=== PATIENT | female | born 1995 | race Caucasian/White ===

== ENCOUNTER 2023-09-21 06:36 | Observation (INO) | payer OTHER, SELFPAY ==
--- NOTE | ~2023-09-21 | MR_ITS ---
EXAMINATION: MR BRAIN WITHOUT CONTRAST CLINICAL INFORMATION: Intractable vertigo. COMPARISON: CT head 09/21/2023. TECHNIQUE: MRI of the brain was obtained using routine sequences without contrast. FINDINGS: There are a few scattered nonspecific foci of T2 FLAIR signal hyperintensity within the supratentorial white matter. No infratentorial white matter disease. No acute territorial infarct. No pathological magnetic susceptibility artifact. Intracranial vascular flow voids are grossly maintained. There is no intracranial mass effect or midline shift. Lateral and third ventricles are normal. No hydrocephalus. Midline structures including the cervicomedullary junction are normal. No acute bone marrow signal changes. There is no mastoid or middle ear effusion. Trivial mucosal thickening within ethmoid air cells. Globes and orbits are symmetric. MR/MR head/brain wo con IMPRESSION: There are a few scattered nonspecific signal changes within the supratentorial white matter. Otherwise unremarkable examination. No infratentorial white matter disease. No evidence of acute territorial infarct or hemorrhage.
--- NOTE | ~2023-09-21 | CT_ITS ---
EXAMINATION: CT HEAD WITHOUT CONTRAST CLINICAL INFORMATION: Dizziness COMPARISON: None available. TECHNIQUE: Contiguous axial imaging was performed from the skull base to vertex without intravenous administration of contrast. This CT examination was performed using dose optimization techniques as appropriate, variously including the following: *Automated exposure control *Adjustment of mA and/or kV according to patient size (this includes techniques or standardized protocols for targeted exams where dose is matched to indication/reason for exam; i.e. extremities or head) *Use of iterative reconstruction technique DLP: 572 mGy-cm FINDINGS: There is no evidence of acute intracranial hemorrhage or territorial infarction. No abnormal mass effect or midline shift is seen. Bowers to white matter differentiation is well preserved. No extra-axial fluid collections are identified. The ventricles are normal in size. There is no abnormal attenuation within the brain parenchyma. The osseous structures and soft tissues are normal. The mastoid air cells and visualized portions of the paranasal sinuses are well aerated. CT/CT head/brain wo IV con IMPRESSION: No acute intracranial pathology.
[2023-09-21 06:46] VITALS: BP 139/95; PULSE 89; RESP 16; TEMP 37.1; O2SAT 98; BMI 23.3
[2023-09-21 07:02] LABS: MANUAL DIFF FLAG NO
[2023-09-21 07:06] LABS: Basophils Percent Auto 0.4 % (0-2); Eosinophils Absolute Auto 0.1 X10*3/uL (0.0-0.4); Eosinophils Percent Auto 1.1 % (0-4); Hematocrit 42.4 % (37.0-47.0); Hemoglobin 14.4 g/dl (12.0-16.0); Imm Gran Abs Auto 0.03 X10*3/uL (0.00-0.03); Imm Gran Pct Auto 0.4 % (0.0-0.4); Lymphocytes Percent Auto 28.8 % (20-40); Mean Corpuscular Hemoglobin 30.7 pg (27.0-33.0); Mean Corpuscular Volume 90.4 fL (80.0-98.0); Mean Platelet Volume 11.2 fL (9.4-12.3); Monocytes Absolute Auto 0.6 X10*3/uL (0.1-1.2); Monocytes Percent Auto 8.3 % (2-11); Neutrophils Absolute Auto 4.3 x10*3/uL (2.0-8.3); Platelet Count 162 X10*3/uL (160-400); Red Blood Count 4.69 X10*6/uL (4.20-5.50); Red Cell Distribution Width 11.5 % (11.0-16.0); White Blood Count 7.1 X10*3/uL (4.8-10.8)
[2023-09-21 07:21] LABS: Alanine Aminotransferase 21 U/L (0-31); Albumin Level 4.3 g/dL (3.5-5.0); Alkaline Phosphatase 76 U/L (39-117); Anion Gap 12 (12-20); Aspartate Amino Transferase 19 U/L (5-31); Bilirubin Direct 0.1 mg/dL (0.0-0.5); Bilirubin Total 0.3 mg/dL (0.0-1.0); Blood Urea Nitrogen 11 mg/dL (9-16); Calcium 9.9 mg/dL (8.4-10.2); Carbon Dioxide 22 mmol/L (22-29); Chloride 108 mmol/L (96-108); Creatinine Clr Calc Pharmacy 102.3; Estimated Glomerular Filt Rate > 60; Glucose Random 120 mg/dL (60-115); Lipase 25 U/L (8-78); Potassium 3.7 mmol/L (3.3-5.1); Sodium 138 mmol/L (135-145); Total Protein 7.1 g/dL (6.5-8.0)
--- NOTE | 2023-09-21 08:09 | ED_ITS ---
HPI - General Adult General Chief complaint: Nausea/Vomiting/Diarrhea Stated complaint: Vomiting Time Seen by Provider: 09/21/23 07:59 Source: patient and family (Sister) Mode of arrival: ambulatory Limitations: no limitations History of Present Illness ED Provider: DR. Goodman HPI narrative: 27-year-old female presented after woke up this morning with head pain feels like pins and needle in the entire head associated with severe dizziness and vomiting. Patient declined any weakness or numbness. no family history of strokes, brain bleed, or brain cancer. Patient drinks alcohol occasionally nothing recently, but patient use edible marijuana almost on a daily basis. Patient's symptoms is constant since 05:00 when she woke up, during the exam patient is bending down to keep her head down which is the only position relief patient's symptoms. Patient had similar symptoms in the past but in a mild form not as severe as today. No abdominal pain, no diarrhea. Related Data Home Medications ?Medication ?Instructions ?Recorded ?Confirmed cholecalciferol (vitamin D3) 10 10 mcg PO DAILY 08/06/22 08/06/22 mcg (400 unit) tablet (Vitamin D3) lisdexamfetamine 70 mg capsule 70 mg PO QAM 08/06/22 08/06/22 (Vyvanse) sulindac 150 mg tablet 150 mg PO BID PRN pain 08/06/22 08/06/22 Previous Rx's ?Medication ?Instructions ?Recorded benzoyl peroxide 10 % topical 1 appl topical DAILY #142 grams 08/06/22 cleanser spironolactone 50 mg tablet 50 mg PO BID #60 tabs 08/10/22 Allergies Allergy/AdvReac Type Severity Reaction Status Date / Time clindamycin Allergy Intermediate Chest Pain Verified 09/21/23 06:48 Review of Systems 2 Review of Systems: All other systems are reviewed and are negative Constitutional: Reports as per HPI and Reports no additional constitutional complaints Eyes: Reports as per HPI and Reports no additional eye complaints Reports system reviewed and no additional complaints, except as documented Cardiovascular: Reports as per HPI and Reports no additional cardiovascular complaints Respiratory: Reports as per HPI and Reports no additional respiratory complaints Gastrointestinal: Reports as per HPI and Reports no additional gastrointestinal complaints Genitourinary: Reports no additional female genitourinary complaints Musculoskeletal: Reports no additional musculoskeletal complaints Skin/Breast: Reports system reviewed and no additional complaints, except as docu Psychiatric: Reports no additional psychiatric complaints Endocrine: Reports no additional endocrine complaints Hematologic/Lymphatic: Reports no additional hematologic/lymphatic complaints Allergic/Immunologic: Reports no additional allergic/immunologic complaints Reports system reviewed and no additional complaints, except as documented and Reports Abnormal speech present [facility] Social History Social History Patient Tobacco Use Status: Current everyday Tobacco user Advance Directives: No Advance Directives Information Provided: Yes Do you have a plan to hurt others: No Plan Patient : No Physical Exam ED Vital Signs: Vital Signs - 24 hr 09/21/23 06:46 09/21/23 11:00 Temperature 98.8 F 98 F Pulse Rate 89 77 Respiratory Rate 16 16 Blood Pressure 139/95 H 101/55 L Pulse Oximetry 98 100 Oxygen Delivery Method Room Air Room Air BMI result Body Mass Index 23.3 Vital signs have been reviewed and appear to be correct. Blood pressure elevated. Heart rate normal. Respiratory rate normal. Temperature normal. Oxygen saturation normal. Appearance: Alert. Oriented X3. No acute distress. Head: Normal external exam. Normocephalic. Atraumatic. No Crystal signs noted. No raccoon eyes noted Eyes: PERRLA. EOMI. Conjunctiva and sclera normal. Eyelids normal. ENT: TM's Normal. Pharynx normal. Uvula midline. Moist mucous membranes. No trismus noted. No drooling noted. No muffled voice noted. Neck: Normal inspection. Neck supple. FROM. No adenopathy. Thyroid Normal. No meningeal signs. No neck mass noted. CVS: Normal heart rate and rhythm. Heart sound normal. No murmurs noted. Pulses normal throughout. Respiratory: No respiratory distress. Painless inspiration. Breath sounds normal. No wheezes/rales/rhonchi noted. Chest nontender. No accessory muscle usage noted or decreased air movement noted. Abdomen: Soft and nontender. Bowel sounds normal in all 4 quadrants. No distention noted. No organomegaly noted. No visible injury noted. Back: No CVA tenderness. Full range of motion noted. Skin: Skin warm and dry. Normal skin color. Normal skin turgor. No rashes/lesions/lacerations noted. Extremities: No lower extremity edema. Extremities exhibit normal range of motion. Extremities nontender. Neuro: Oriented X 3. Cranial nerve exam: II-XII are grossly intact No motor deficit. No sensory deficit. Reflexes normal. Normal cerebellar exam no [id number] dysmetria, can not perform toe to heel. Course Reevaluation(s) Reevaluation #1: Patient feels better, no nausea, no vomiting, repeat neuro exam is unremarkable for neurological deficit, able to ambulate in the emergency department steadily. Unremarkable labs, head CT is unremarkable. Patient's symptoms could be related to undiagnosed migraine or vertigo patient will be referred to outpatient neurologist. Meclizine p.r.n.. Time: 10:35 Reevaluation #2: 27-year-old female came in with dizziness and headache/migraine. Patient was given IV fluids, and multiple doses of Zofran, and meclizine with no improvement, unremarkable neuro exam, head CT is unremarkable since patient has unsteady gait will consider admitting until safe to be discharged. Time: 14:16 Medications Administered Discontinued Medications Generic Name Dose Route Start Last Admin Trade Name Freq PRN Reason Stop Dose Admin Sodium Chloride 1,000 mls @ 999 mls/hr 09/21/23 08:07 09/21/23 10:58 Ns IV 09/21/23 09:07 Infused .Q1H1M ONE Infusion Lorazepam 1 mg 09/21/23 08:07 09/21/23 08:47 Lorazepam 2 Mg/Ml Vial IVPUSH 09/21/23 08:08 1 mg ONCE ONE Administration Lorazepam 1 mg 09/21/23 10:42 09/21/23 11:01 Lorazepam 2 Mg/Ml Vial IVPUSH 09/21/23 10:43 1 mg STAT STA Administration Meclizine HCl 25 mg 09/21/23 08:07 09/21/23 08:48 Meclizine Hcl 25 Mg Tablet PO 09/21/23 08:08 25 mg ONCE ONE Administration Meclizine HCl 25 mg 09/21/23 10:42 09/21/23 11:02 Meclizine Hcl 25 Mg Tablet PO 09/21/23 10:43 25 mg ONCE ONE Administration Ondansetron HCl 4 mg 09/21/23 08:07 09/21/23 08:47 Ondansetron Hcl 4 Mg/2 Ml Vial IVPUSH 09/21/23 08:08 4 mg ONCE ONE Administration Medical Decision Making Differential Diagnosis Differential Diagnoses: The differential diagnosis associated with the presentation includes (Intracranial bleed, CVA, peripheral vertigo, dehydration, electrolyte derangement, severe anemia, .) Admission/Observation Consideration of admission/observation: Escalation of care including admission/observation considered Consult Healthcare Provider Management of the patient was discussed with: Hospitalist (Dr. Palacios) Lab Data MDM Lab Attestation statement: I reviewed the patient's lab results. 09/21/23 06:57 09/21/23 06:57 Labs: Lab Results 09/21/23 Range/Units 06:57 WBC 7.1 (4.8-10.8) X10*3/uL RBC 4.69 (4.20-5.50) X10*6/uL Hgb 14.4 (12.0-16.0) g/dl Hct 42.4 (37.0-47.0) % MCV 90.4 (80.0-98.0) fL MCH 30.7 (27.0-33.0) pg MCHC 34.0 (31.0-35.0) g/dl RDW 11.5 (11.0-16.0) % Plt Count 162 (160-400) X10*3/uL MPV 11.2 (9.4-12.3) fL Immature Gran % (Auto) 0.4 (0.0-0.4) % Neut % (Auto) 61.0 (45-73) % Lymph % (Auto) 28.8 (20-40) % [place] % (Auto) 8.3 (2-11) % Eos % (Auto) 1.1 (0-4) % Baso % (Auto) 0.4 (0-2) % Lymph # (Auto) 2.0 (1.2-4.9) X10*3/uL [place] # (Auto) 0.6 (0.1-1.2) X10*3/uL Eos # (Auto) 0.1 (0.0-0.4) X10*3/uL Baso # (Auto) 0.0 (0.0-0.2) X10*3/uL Abs Immat Gran (auto) 0.03 (0.00-0.03) X10*3/uL Absolute Neuts (auto) 4.3 (2.0-8.3) x10*3/uL Absolute Nucleated RBC 0.000 (0.0-0.012) X10*3/uL Nucleated RBC % (auto) 0.0 (0.0-0.2) /100WBC Sodium 138 (135-145) mmol/L Potassium 3.7 (3.3-5.1) mmol/L Chloride 108 (96-108) mmol/L Carbon Dioxide 22 (22-29) mmol/L Anion Gap 12 (12-20) BUN 11 (9-16) mg/dL Creatinine 0.73 (0.5-1.4) mg/dL Estim Creat Clear Calc 102.3 Estimated GFR > 60 Random Glucose 120 H (60-115) mg/dL Calcium 9.9 (8.4-10.2) mg/dL Total Bilirubin 0.3 (0.0-1.0) mg/dL Direct Bilirubin 0.1 (0.0-0.5) mg/dL AST 19 (5-31) U/L ALT 21 (0-31) U/L Alkaline Phosphatase 76 (39-117) U/L Total Protein 7.1 (6.5-8.0) g/dL Albumin 4.3 (3.5-5.0) g/dL Lipase 25 (8-78) U/L Beta HCG, Quant < 2 mIU/mL Independent Interpretation I performed an independent interpretation of an: CT Scan (Head: No acute intracranial pathology.) Radiology Impression Discussion of test interpretation with radiology: I have reviewed the radiologist's reading. Discharge Plan Discharge Clinical Impression: Vertigo, Headache Patient Disposition: Admitted As Inpatient Print Language: Italian
[2023-09-21] MEDS: LORazepam 2 MG/ML VIAL 1 MG IVPUSH ×2 (08:47→11:01)
[2023-09-21] MEDS: ondansetron HCL 4 MG/2 ML VIAL IVPUSH ×2 (08:47→18:43)
[2023-09-21] MEDS: Meclizine HCl 25 MG TABLET PO ×2 (08:48→11:02)
[2023-09-21] MEDS: 0.9 % Sodium Chloride 1,000 ML 999 ML IV (08:48)
[2023-09-21 09:25] LABS: HCG Quantitative < 2 mIU/mL
--- NOTE | 2023-09-21 10:44 | PC.NURSE ---
attempted to ambulate pt, very dizzy with 2x assist
[2023-09-21 11:00] VITALS: BP 101/55; PULSE 77; RESP 16; TEMP 36.6; O2SAT 100
--- NOTE | 2023-09-21 14:24 | PM.IMHP ---
History of Present Illness Date of Service: 09/21/23 Attending physician on admission: Peewee Nguyễn Chief Complaint: vertigo, n/v 27 year old female with history of cystic acne presented to the ED for evaluation of intractable vertigo with associated bilateral frontal headache, nausea, vomiting, gait imbalance that started around 5am. She states this was constant but now only happens with position changes, ambulating, and with head movements. Does have nausea and has vomited multiple times. She feels unsteady on her feet. She states she did take 1/2 THC gummy last night that was purchased from dispensary but has used full gummies in the past without this effect. No other substance use including alcohol, illicit drugs, cigarettes. Denies confusion, slurred speech, facial droop, unilateral weakness, paresthesias, diplopia, vision loss, syncope, sob, chest pain, or recent illness. No vision loss. No changes in hearing or tinnitus. No known tick bites. Has had similar symptoms in the past but never this severe, last recalled episode may 2022. Since arrival, VSS. Hematology studies unremarkable. Renal function normal, electrolyte levels normal. Serum test negative. Denies any new medications. She does have Nexplanon in place. Head CT negative for any acute intracranial abnormality. UA pending. In the ED, has received a total of 50 mg meclizine, 2 mg lorazepam, ondansetron and 1 L IV NS. Despite therapies, remains significantly symptomatic. Review of Systems Review of Systems: Yes all other systems are reviewed and are negative [facility] Medical History ADD (attention deficit disorder) Cystic acne Social History Patient Tobacco Use Status: Current everyday Tobacco user Advance Directives: No Advance Directives Information Provided: Yes Do you have a plan to hurt others: No Plan Patient : No Meds Allergies Allergy/AdvReac Type Severity Reaction Status Date / Time clindamycin Allergy Intermediate Chest Pain Verified 09/21/23 06:48 Active Medications: Current Medications Acetaminophen (Acetaminophen 325 Mg Tablet) 650 mg PO Q6H PRN PRN Reason: Pain, Mild (Pain Scale 1-3), fever or headache Calcium Carbonate (Calcium Carbonate 750 Mg Tab.Chew) 750 mg PO Q4H PRN PRN Reason: Heartburn Magnesium Hydroxide (Milk Of Magnesia 30 Ml Oral.Susp) 30 ml PO DAILY PRN PRN Reason: Constipation Melatonin (Melatonin 3 Mg Tablet) 6 mg PO BEDTIME PRN PRN Reason: Insomnia Ondansetron HCl (Ondansetron Hcl 4 Mg/2 Ml Vial) 4 mg IVPUSH Q8H PRN PRN Reason: Nausea and Vomiting Sodium Chloride (0.9 % Sodium Chloride Flush 3 Ml Syringe) 3 ml IVFLUSH QSHIFT OPAL Sumatriptan Succinate (Sumatriptan Succinate 6 Mg/0.5 Ml Vial) 6 mg SUBCUT ONCE ONE Stop: 09/21/23 14:22 Home Medications ?Medication ?Instructions ?Recorded ?Confirmed ?Last Taken ?Type cholecalciferol (vitamin D3) 10 10 mcg PO DAILY 08/06/22 08/06/22 Unknown History mcg (400 unit) tablet (Vitamin D3) lisdexamfetamine 70 mg capsule 70 mg PO QAM 08/06/22 08/06/22 Unknown History (Erin) sulindac 150 mg tablet 150 mg PO BID PRN pain 08/06/22 08/06/22 Unknown History Physical Exam Vital Signs and Narrative: Vital Signs: Last Vital Signs Temp 98 F 09/21/23 11:00 Pulse 77 09/21/23 11:00 Resp 16 09/21/23 11:00 BP 101/55 L 09/21/23 11:00 Pulse Ox 100 09/21/23 11:00 O2 Del Method Room Air 09/21/23 11:00 BMI result Body Mass Index 23.3 Constitutional - Awake and Alert, No apparent distress Eyes - PERRLA, EOMI Cardiovascular - S1S2, RRR, No edema Respiratory - Normal lung expansion, Normal respiratory effort, No respiratory distress, CTA bilaterally Gastrointestinal - NT / ND; +BS; No rebound or guarding Extremities - no calf tenderness bilaterally, no swelling Skin - Warm/Dry Neurological - Alert & oriented x3, bilateral horizontal nystagmus otherwise CN II-XII in tact, 5/5 strength BUE and BLE, negative romberg, gait imbalance Psychological - Appropriate affect Results Labs 09/21/23 06:57 09/21/23 06:57 Labs: Laboratory Results - last 24 hr 09/21/23 06:57 MCV 90.4 MCH 30.7 MCHC 34.0 RDW 11.5 Plt Count 162 MPV 11.2 Immature Gran % (Auto) 0.4 Neut % (Auto) 61.0 Lymph % (Auto) 28.8 [place] % (Auto) 8.3 Eos % (Auto) 1.1 Baso % (Auto) 0.4 Lymph # (Auto) 2.0 [place] # (Auto) 0.6 Eos # (Auto) 0.1 Baso # (Auto) 0.0 Abs Immat Gran (auto) 0.03 Absolute Neuts (auto) 4.3 Absolute Nucleated RBC 0.000 Nucleated RBC % (auto) 0.0 Anion Gap 12 Estim Creat Clear Calc 102.3 Estimated GFR > 60 Random Glucose 120 H Calcium 9.9 Total Bilirubin 0.3 Direct Bilirubin 0.1 AST 19 ALT 21 Alkaline Phosphatase 76 Total Protein 7.1 Albumin 4.3 Lipase 25 Beta HCG, Quant < 2 Imaging Radiologist's Impressions: Impressions Head CT 09/21/23 09:52 IMPRESSION: No acute intracranial pathology. Assessment and Plan (1) Headache: Status: Acute (2) Vertigo: Status: Acute Plan 27 year old female with history of cystic acne to be observed for intractable vertigo #Intractable peripheral vertigo with bileteral frontal headache -headache more consistent with tension headache but question possible vestibular migraine. Trial IM sumatriptan 6mg x1 -no hearing changes, vision changes. Doubt menieres, labrynithitis -Does use nexplanon, but no focal neuro deficits except nystagmus to suggest CVA. Check MRI brain -Given meclizine 50mg x2, lorazepam. Continue meclizine prn -antiemetics prn. Famotidine 20mg IV BID -clear liquids given ongoing nausea/vomiting. Continue OVF -neuro consult DVT prophylaxis- scps, early ambulation full code Quality Stroke Does the patient have a stroke diagnosis?: No VTE Prior VTE?: No VTE Risk Level:: Medical - moderate - high VTE Device Contraindication: N/A - Device Ordered VTE Drug Contraindication: Treatment Not Indicated
[2023-09-21] MEDS: 0.9 % Sodium Chloride 1,000 ML 100 ML IVCONT (15:07)
--- NOTE | 2023-09-21 15:30 | PHA.MEDREC ---
Addendum entered by Mildred Coy 09/21/23 15:44: Per patient, she opened her Vyvanse capsule and only took 1/4 of the contents. Original Note: Pharmacy Consult ? Medication Reconciliation Pharmacy has completed the medication reconciliation. spoke with patient to confirm medications. She takes OTC supplements, she thinks her vitamin d is 5000 units. States she tries to take the highest doses she can find OTC. She reports she has been too nervous to start the Vyvanse and only took 1/4 of a pill on Saturday. Patient states she did not take anything today or yesterday.
[2023-09-21] MEDS: Famotidine/PF 20 MG/2 ML VIAL IVPUSH ×2 (15:31→21:36)
[2023-09-21] MEDS: SUMAtriptan succinate 6 MG/0.5 ML VIAL SUBCUT (15:31)
--- NOTE | 2023-09-21 15:56 | PC.NURSE ---
pt off unit to MRI
--- NOTE | 2023-09-21 17:22 | PC.NURSE ---
pt unable to complete orthostatic vitals at this time, pt lethargic and dizzy.
[2023-09-21 17:29] VITALS: BP 102/62; PULSE 61; RESP 14; TEMP 36.8; O2SAT 99
[2023-09-21 17:53] VITALS: BP 103/59; PULSE 53; RESP 16; TEMP 36.8; O2SAT 98
[2023-09-21 18:22] LABS: Appearance Urine Clear; Color Urine Yellow; Glucose Urine UA Negative (Negative); Leukocyte Esterase Urine Negative (Negative); Nitrite Urine Negative (Negative); PH 7.5 (5.0-9.0); UMIC TRIGGER UACC YES; Urine Blood Moderate (2+) (Negative); Urine Ketones Negative (Negative); Urine Protein Negative (Neg-Trace)
[2023-09-21 18:23] LABS: UPreg QC Valid YES; Urine Pregnancy NEGATIVE (NEGATIVE)
[2023-09-21 18:36] LABS: Bacteria Urine None Seen (None Seen); Hyaline Casts Urine 0-2 /LPF (0-2); RBC Urine 0-2 /HPF (0-2); Squamous Epithelial Cell Urine 0-2 /HPF (0-2); WBC Urine 0-5 /HPF (0-5)
[2023-09-21] MEDS: Doxycycline Hyclate 100 MG in 0.9 % Sodium Chloride 250 ML 166.67 MG IV (18:43)
--- NOTE | 2023-09-21 19:36 | PC.NURSE ---
This RN assumed pt care @ 1900. Pt resting in bed, no signs of acute distress. Family @ bedside. Pt denies pain at this time Plan of care ongoing.
--- NOTE | 2023-09-21 19:42 | PC.NURSE ---
Solumedrol given late d/t abx running and per cammy at pharm med being brought down now. Plan of care ongoing.
[2023-09-21 19:46] VITALS: BP 110/70; PULSE 66; RESP 13; TEMP 36.3; O2SAT 99
--- NOTE | 2023-09-21 19:49 | PC.NURSE ---
Deb warren'd from pharm. Plan of care ongoing.
[2023-09-21] MEDS: methylPREDNISolone Sod Succ 1,000 MG in 0.9 % Sodium Chloride 50 ML 66 MG IV (20:37)
--- NOTE | 2023-09-21 21:38 | PC.NURSE ---
Pt medicated per may. Plan of care ongoing.
[2023-09-22 00:16] VITALS: BP 94/63; PULSE 69; RESP 16; TEMP 36.7; O2SAT 97
[2023-09-22 01:04] VITALS: BP 110/63; PULSE 70; RESP 18; TEMP 36.2; O2SAT 97
--- NOTE | 2023-09-22 01:22 | MHC.EDTECH ---
When going over belongings with Pt, she stated shed had her wallet and keys with her so this was noted in belongings sheet. After t/w completed and printed this, Pt stated her mother took these items home. This was marked on the belongings sheet, and changed in the system.
[2023-09-22] MEDS: 0.9 % Sodium Chloride 1,000 ML 100 ML IVCONT ×3 (01:26→21:24)
[2023-09-22] MEDS: Doxycycline Hyclate 100 MG in 0.9 % Sodium Chloride 250 ML 166.67 MG IV ×2 (05:55→16:56)
[2023-09-22] MEDS: ondansetron HCL 4 MG/2 ML VIAL IVPUSH (06:03)
[2023-09-22 06:59] VITALS: BP 100/61; PULSE 60; RESP 16; TEMP 36; O2SAT 97
[2023-09-22] MEDS: Ferrous Sulfate 324 MG TABLET.DR PO (08:45)
[2023-09-22] MEDS: Calcium Oyster Shell Elemental 500 MG TABLET PO (08:46)
[2023-09-22] MEDS: Cyanocobalamin (Vitamin B-12) 1,000 MCG TABLET 1000 MCG PO (08:48)
[2023-09-22] MEDS: Cholecalciferol (Vitamin D3) 25 MCG TABLET 125 MCG PO (08:48)
[2023-09-22] MEDS: methylPREDNISolone Sod Succ 1,000 MG in 0.9 % Sodium Chloride 50 ML 66 MG IV (08:49)
[2023-09-22] MEDS: Famotidine/PF 20 MG/2 ML VIAL IVPUSH ×2 (08:49→21:18)
--- NOTE | 2023-09-22 09:43 | P.PNIM_ITS ---
Subjective Subjective Date of Service: 09/22/23 Interval History: vertigo somewhat better Physical Exam 2 Vital Signs: Vital Signs: Last Vital Signs Temp 96.8 F 09/22/23 06:59 Pulse 60 09/22/23 06:59 Resp 16 09/22/23 06:59 BP 100/61 09/22/23 06:59 Pulse Ox 97 09/22/23 06:59 O2 Del Method Room Air 09/22/23 06:59 BMI result Body Mass Index 23.3 General: AO X 3, no acute distress Resp: CTA bilateral, no accessory muscles used CVS: S1,S2,RRR GI: soft, non tender, non distended Neuro: motor grossly intact, alert Psych: appropriate affect, appropriate insight Objective Data Active Medications Acetaminophen (Acetaminophen 325 Mg Tablet) 650 mg PO Q6H PRN PRN Reason: Pain, Mild (Pain Scale 1-3), fever or headache Albuterol Sulfate (Albuterol Sulfate 90 Mcg 8 Gm Inhaler) 2 puff INHALE Q4H PRN PRN Reason: Shortness Of Breath Or Wheezin Calcium Carbonate (Calcium Carbonate 750 Mg Tab.Chew) 750 mg PO Q4H PRN PRN Reason: Heartburn Calcium Carbonate (Calcium Oyster Shell Elemental 500 Mg Tablet) 500 mg PO DAILY [facility] Last Admin: 09/22/23 08:46 Dose: 500 mg Documented By: MEKHI Cyanocobalamin (Cyanocobalamin (Vitamin B-12) 1,000 Mcg Tablet) 1,000 mcg PO DAILY [facility] Last Admin: 09/22/23 08:48 Dose: 1,000 mcg Documented By: MEKHI Famotidine (Famotidine/Pf 20 Mg/2 Ml Vial) 20 mg IVPUSH BID [facility] Last Admin: 09/22/23 08:49 Dose: 20 mg Documented By: MEKHI Ferrous Sulfate (Ferrous Sulfate 324 Mg Tablet.Dr) 324 mg PO DAILY [facility] Last Admin: 09/22/23 08:45 Dose: 324 mg Documented By: MEKHI Sodium Chloride (Ns) 1,000 mls @ 100 mls/hr IVCONT .Q10H [facility] Last Admin: 09/22/23 01:26 Dose: 100 mls/hr Documented By: JEFFRY Doxycycline Hyclate 100 mg/ (Sodium Chloride) 250 mls @ 166.67 mls/hr IV Q12H [facility] Last Infusion: 09/22/23 07:38 Dose: Infused Documented By: MEKHI Methylprednisolone Sodium Succinate 1,000 mg/ Sodium Chloride 66 mls @ 66 mls/hr IV DAILY [facility] Last Admin: 09/22/23 08:49 Dose: 66 mls/hr Documented By: MEKHI Magnesium Hydroxide (Milk Of Magnesia 30 Ml Oral.Susp) 30 ml PO DAILY PRN PRN Reason: Constipation Meclizine HCl (Meclizine Hcl 25 Mg Tablet) 25 mg PO Q8H PRN PRN Reason: Vertigo Melatonin (Melatonin 3 Mg Tablet) 6 mg PO BEDTIME PRN PRN Reason: Insomnia Ondansetron HCl (Ondansetron Hcl 4 Mg/2 Ml Vial) 4 mg IVPUSH Q8H PRN PRN Reason: Nausea and Vomiting Last Admin: 09/22/23 06:03 Dose: 4 mg Documented By: JEFFRY Sodium Chloride (0.9 % Sodium Chloride Flush 3 Ml Syringe) 3 ml IVFLUSH QSHIFT [facility] Last Admin: 09/22/23 07:38 Dose: Not Given Documented By: MEKHI Non-Admin Reason: IV Running Vitamin D (Cholecalciferol (Vitamin D3) 25 Mcg Tablet) 125 mcg PO DAILY [facility] Last Admin: 09/22/23 08:48 Dose: 125 mcg Documented By: MEKHI Labs 09/21/23 06:57 09/21/23 06:57 Labs: Laboratory Results - last 24 hr 09/21/23 18:14 Urine Color Yellow Urine Appearance Clear Urine pH 7.5 Ur Specific [place] 1.010 Urine Protein Negative Urine Glucose (UA) Negative Urine Ketones Negative Urine Blood Moderate (2+) H Urine Nitrite Negative Ur Leukocyte Esterase Negative Urine RBC 0-2 Urine WBC 0-5 Ur Squamous Epith Cells 0-2 Urine Bacteria None Seen Hyaline Casts 0-2 Urine Test NEGATIVE Assessment and Plan (1) Vertigo: Status: Acute Plan 27F presented with intractable vertigo intractable vertigo d/w neuro differential includes complicated migraine, less likely MS or lyme continue empiric high dose steroids day 2/3, and empiric doxy until lyme results returned will cancel LP, plan for repeat mri in 6 months full code reason for continued hospitalization: high dose steroids Quality Stroke Does the patient have a stroke diagnosis?: No VTE Prior VTE?: No VTE Risk Level:: Medical - moderate - high VTE Device Contraindication: N/A - Device Ordered VTE Drug Contraindication: Treatment Not Indicated
--- NOTE | 2023-09-22 14:02 | MHC.CM.PN ---
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
[2023-09-22 16:00] VITALS: BP 110/59; PULSE 79; RESP 16; TEMP 36.4; O2SAT 98
[2023-09-22 19:33] VITALS: BP 120/79; PULSE 88; RESP 18; TEMP 36.6; O2SAT 97
[2023-09-22] MEDS: SUMAtriptan succinate 50 MG TABLET PO (19:36)
[2023-09-23] VITALS: BP 100/61; PULSE 74; RESP 16; TEMP 36; O2SAT 96
[2023-09-23 04:00] VITALS: BP 99/65; PULSE 65; RESP 16; TEMP 36; O2SAT 98
[2023-09-23] MEDS: Doxycycline Hyclate 100 MG in 0.9 % Sodium Chloride 250 ML 166.67 MG IV (05:59)
[2023-09-23] MEDS: 0.9 % Sodium Chloride 1,000 ML 100 ML IVCONT (06:14)
[2023-09-23 07:43] VITALS: BP 121/71; PULSE 57; RESP 18; TEMP 36.3; O2SAT 98
--- NOTE | 2023-09-23 09:08 | PM.DS ---
DS: Providers Provider Date of Service: 09/23/23 Date of admission: 09/21/23 14:21 Primary care physician: Chloe Shields DO Consults: 09/21/23 14:40 Consult to Neurology Routine Consulting Provider: [facility] Reason for consultation: intractable vertigo DS: Diagnosis Discharge Diagnosis (1) Vertigo: Status: Acute DS: Summary Hospital Course Hospital Course: from initial hpi: 27 year old female with history of cystic acne presented to the ED for evaluation of intractable vertigo with associated bilateral frontal headache, nausea, vomiting, gait imbalance that started around 5am. She states this was constant but now only happens with position changes, ambulating, and with head movements. Does have nausea and has vomited multiple times. She feels unsteady on her feet. She states she did take 1/2 THC gummy last night that was purchased from dispensary but has used full gummies in the past without this effect. No other substance use including alcohol, illicit drugs, cigarettes. Denies confusion, slurred speech, facial droop, unilateral weakness, paresthesias, diplopia, vision loss, syncope, sob, chest pain, or recent illness. No vision loss. No changes in hearing or tinnitus. No known tick bites. Has had similar symptoms in the past but never this severe, last recalled episode may 2022. Since arrival, VSS. Hematology studies unremarkable. Renal function normal, electrolyte levels normal. Serum test negative. Denies any new medications. She does have Nexplanon in place. Head CT negative for any acute intracranial abnormality. UA pending. In the ED, has received a total of 50 mg meclizine, 2 mg lorazepam, ondansetron and 1 L IV NS. Despite therapies, remains significantly symptomatic. hospital course: Patient was admitted for intractable vertigo, differential includes complicated migraine, multiple sclerosis, Lyme. She was treated empirically with high-dose steroids for 3 days, doxycycline. Was seen by Neurology who recommended continue doxycycline in LEs Lyme comes back negative. Follow-up with neurology and repeat MRI in about 6 months. Time Attestation Discharge Coordination Time (in mins): 34 Quality: Safe Use of Opioids Does Pt have an Active Cancer Diagnosis on the Problem List?: No Quality: Stroke Does the patient have a stroke diagnosis?: No Physical Exam Vital Signs: Vital Signs: Last Vital Signs Temp 97.4 F 06/24/24 07:43 Pulse 57 09/23/23 07:43 Resp 18 09/23/23 07:43 BP 121/71 09/23/23 07:43 Pulse Ox 98 09/23/23 07:43 O2 Del Method Room Air 09/23/23 07:43 BMI result Body Mass Index 23.3 General: AO X 3, no acute distress Resp: CTA bilateral, no accessory muscles used CVS: S1,S2,RRR GI: soft, non tender, non distended Neuro: motor grossly intact, alert Psych: appropriate affect, appropriate insight Discharge Plan Discharge Anticipated Discharge Date/Time: 09/23/23 09:06 Patient Disposition: Home, Self-Care Discharge Diagnosis: migraine Referrals: Anne Marie Kelly MD [Physician] - 1 Week Chloe Miranda DO [Primary Care Provider] - 1 Week Discharge Medications: New doxycycline hyclate 100 mg tablet 100 mg PO BID Qty: 14 0RF Continued cyanocobalamin (vitamin B-12) 1,000 mcg Tablet 1,000 mcg PO DAILY calcium carbonate 500 mg calcium (1,250 mg) Tablet 500 mg PO DAILY ferrous sulfate [iron] 325 mg (65 mg iron) Tablet 325 mg PO DAILY ibuprofen 200 mg Tablet 400 mg PO DAILY PRN (Reason: Pain) albuterol sulfate 90 mcg/actuation Hfa Aerosol Inhaler 2 puff INHALATION Q4-6H PRN (Reason: Shortness Of Breath Or Wheezing) Nexplanon 68 mg Implant 68 mg SUBDERMAL USEASDIRECTD cholecalciferol (vitamin D3) [Vitamin D3] 125 mcg (5,000 unit) Tablet 125 mcg PO DAILY Diet: Advance to usual diet Activity on Discharge: As tolerated Stand Alone Forms: Patient Portal Discharge page Print Language: Montenegrin Care Plan Goals: recovery Health Concerns: vertigo Plan of Treatment: empiric doxycycline for now, if lyme negative can stop follow up with neuro, repeat MRI in about 6 months Assessment: see above
[2023-09-23] MEDS: Cholecalciferol (Vitamin D3) 25 MCG TABLET 125 MCG PO (09:29)
[2023-09-23] MEDS: Ferrous Sulfate 324 MG TABLET.DR PO (09:30)
[2023-09-23] MEDS: Calcium Oyster Shell Elemental 500 MG TABLET PO (09:30)
[2023-09-23] MEDS: Cyanocobalamin (Vitamin B-12) 1,000 MCG TABLET 1000 MCG PO (09:31)
[2023-09-23] MEDS: Famotidine/PF 20 MG/2 ML VIAL IVPUSH (09:31)
[2023-09-23] MEDS: 0.9 % Sodium Chloride Flush 3 ML SYRINGE IVFLUSH (09:36)
--- NOTE | 2023-09-23 10:14 | MHC.CM.PN ---
pt dcd home self care
[2023-09-23] MEDS: methylPREDNISolone Sod Succ 1,000 MG in 0.9 % Sodium Chloride 50 ML 66 MG IV (10:23)
[2023-09-23 18:37] LABS: Lyme Abs Screen <0.90 index
[2023-09-24 00:44] LABS: A. Phagocytphilium DNA,RT-PCR NOT DETECTED (NOT DETECTED); Babesia Microti DNA, RT-PCR NOT DETECTED (NOT DETECTED); Borrelia Miyamotoi,DNA RT-PCR NOT DETECTED (NOT DETECTED); E.Chaffeensis DNA RT-PCR NOT DETECTED (NOT DETECTED); Lyme(Borrelia ssp)DNA RT-PCR NOT DETECTED (NOT DETECTED)
== END 2023-09-23 13:35 | disposition home or self-care (01) ==
LOC: HO.ED 14:16 → HO.EDOVER 14:28 → HO.S3 22:55
PROVIDERS: Admitting Provider Physician Assistant; Emergency Provider Emergency Medicine; PCP Internal Medicine; Visit Provider Internal Medicine
DX: G43.909 Migraine, unspecified, not intractable, without status migrainosus (principal); R42 Dizziness and giddiness; R11.10 Vomiting, unspecified; R11.2 Nausea with vomiting, unspecified; R26.89 Other abnormalities of gait and mobility; Z79.899 Other long term (current) drug therapy
CPT/HCPCS: 36415; 70450; 70551; 80048; 80076; 81001; 81025; 83690; 84702; 85025; 86617; 86618; 87468; 87469; 87478; 87484; 87798; 96361; 96365; 96366; 96367; 96372; 96375; 96376; 97161; 99221; 99285; J2060; J2405; J2919; J3030

== ENCOUNTER → 2023-09-21 14:21 | Outpatient (BNV) | payer OTHER, SELFPAY | PROVIDERS: Admitting Provider Physician Assistant; Emergency Provider Emergency Medicine; Visit Provider Physician Assistant | DX: R42 Dizziness and giddiness (principal) | CPT/HCPCS: 99223; 99232; 99239 ==

== ENCOUNTER 2024-09-02 08:52 | Outpatient (RCR) | payer OTHER, SELFPAY ==
[2024-09-02 08:53] VITALS: BP 124/82; PULSE 73; O2SAT 99
== END 2024-09-30 12:35 | disposition home or self-care (01) ==
LOC: HO.PTCHIC 08:52
PROVIDERS: PCP Internal Medicine; Visit Provider Internal Medicine
DX: H81.10 Benign paroxysmal vertigo, unspecified ear (principal)
CPT/HCPCS: 97110; 97161

== ENCOUNTER 2024-12-17 14:00 | Outpatient (RCR) | payer OTHER, SELFPAY | END 2024-12-18 07:54 | disposition home or self-care (01) | LOC: HO.PTCHIC 14:00 | PROVIDERS: PCP Internal Medicine; Visit Provider Internal Medicine | DX: M54.2 Cervicalgia (principal) | CPT/HCPCS: 97110; 97140; 97162 ==

== ENCOUNTER 2024-12-30 04:36 | Emergency (ER) | payer OTHER, SELFPAY ==
--- OUTSIDE RECORDS SUMMARY | 2024-12-28 16:56 | XMS_ITS | Encounter Summary ---
Author Organization Located Within [facility] Address [address] [place] [phone] Phone Care Team Providers Care Edge Stainer Name Role Phone Pcp, Unknown Primary Care Provider Unavailabl e Reason for Visit * Reason Comments Dizziness Encounter Details Date Type Department Care Team ([facility] st Contact Info) Description 12/28/2024 4:56 PM EDT - 12/28/2024 7:54 PM EDT Emergency [facility] [address], [place] [id number] Discharge Disposition: Home or Self Care Social History Tobacco Use Types Packs/Day Years Used Date Smoking Tobacco: Never Assessed Education Answer Date Recorded Are you interested in more education? Not on jessica e 12/01/2023 Are you concerned about learning? Not on file 12/01/2023 No 12/01/2023 No 12/01/2023 Food Answer Date Recorded Within the past 6 months we worried whether our food would run out before we got money to buy more. Never True 12/28/2024 Within the past 6 months the food we bought just didn't last and we didn't have enough money to get more. Never True Residential Stability Answer Date Recor ded What is your housing situation today? I have cari sing 12/28/2024 How many times have you move d in the past 12 months? Zero (I did not move) 12/28/2024 Paying for Meds Answer Date Recorded Do you have trouble paying for medicines? No 12/28/2024 Paying Utility Bills Answer Date Record ed Do you have trouble paying your heating or elect ricity bill? No 12/28/2024 Transportation Answer Date Recorded Has the lack of transportati on kept you from medical appointments or from getting medications? No 12/28/2024 Digital Access Answer Date Recorded No 12/28/2024 Yes 12/28/2024 Do you have reliable internet access at home? Ye s 12/28/2024 Do you have a device (e.g., phone, tablet, computer) with a working camera? Yes 12/28/2024 Intimate Partner Violence Answer Date R ecorded Are you denied basic needs s uch as food, clothing, or medical care? No 12/28/2024 In the past 12 months have y ou been in a relationship with a person who hurts, threatens, or tries to control you? No 12/28/2024 Are you denied basic needs s uch as food, clothing, or medical care? No 12/28/2024 In the past 12 months have y ou been in a relationship with a person who hurts, threatens, or tries to control you? No 12/28/2024 Comments Unknown Sex and Gender Information Value Date Recorded Sex Assigned at Female 12/28/2024 5:09 PM EDT Legal Sex Female 11:57 PM EST Gender Identity Female 12/28/2024 5:09 PM EDT Sexual Orientation Not on file documented as of this encounter Last Filed Vital Signs Vital Sign Reading Time Taken Comments Blood Pressure 124/86 12/28/2024 5:11 PM EDT Pulse 77 12/28/2024 5:11 PM EDT Temperature 36.4 C (97.5 F) 12/28/2024 5:11 PM EDT Respiratory Rate 16 12/28/2024 5:11 PM EDT Oxygen Saturation 100% 12/28/2024 5:11 PM EDT Inhaled Oxygen Concentration - - Weight 68 kg (150 lb) 12/28/2024 5:11 PM EDT Height 165.1 cm (5' 5 ) 12/28/2024 5:11 PM EDT Body Mass Index 24.96 12/28/2024 5:11 PM EDT documented in this encounter Functional Status * Calculated C-SSRS Risk Score (Lifetime/Recent) Answer Date of Assessment Author No Risk Indicated 12/28/2024 5:09 PM EDT Danisha Markham RN * [place] Suicide Severity Rating Scale (Screener/Recent Self-Report) Question Answer Date of Assessment Author 1. Wish to be (Past 1 Month) No 025 5:09 PM EDT Danisha Braden RN 2. Non-Specific Active Suici brain Thoughts (Past 1 Month) No 12/28/2024 5:09 PM EDT Danisha Braden, RN 6. Suicidal Behavior (Lifetime) No 5:09 PM EDT Danisha Braden, RN documented as of this encounter Discharge Instructions * Discharge Instructions* Rona Robbins PA-C - 12/28/2024 7:53 PM EDT -Take non-prescription pain medicines including Motrin and/or Tylenol. -Lie down in a cool, dark, quiet room (this works best for migraine headaches) -Avoid LAGUNAS triggers: Some common headache triggers include: stress, skipping meals or eating too little, having too little or too much caffeine, sleeping too much or too little, drinking alcohol, certain drinks or foods, such as red wine, aged cheese, and hot dogs. -Follow up with your primary care physician or a neurologist to discuss ongoing symptoms, and medications that can used to treat your headaches before they start. -Return to the ED if you have new or worsening headaches, changes with your ability to walk, talk or understand language, or if you develop fever/chills, that is associated with your headache. * Attachments The following attachments cannot be sent through Care Everywhere. * Migraine Headache (Samoan) * Migraine Headache (PCOI) * Vertigo (Samoan) documented in this encounter Medications at Time of Discharge cyanocobalamin, vitamin B-12, (VITAMIN B-12) 1,000 mcg/mL Drop 0 Refills, Maintenance, 07/27/22 8:09:00 EDT, Partial fill upon patient request if the prescription is for a schedule II opioid drug. 07/27/2022 ergocalciferol, vitamin D2, (VITAMIN D2 ORAL) Take 250 mcg by mouth. 07/27/2022 etonogestreL (NEXPLANON) 68 mg Impl 0 Refills, Maintenance, 07/27/22 8:11:00 EDT, Partial fill upon patient request if the prescription is for a schedule II opioid drug. 07/27/2022 ondansetron (ZOFRAN) 8 MG tablet Take 8 mg by mouth every 8 (eight) hours as needed. sulindac (CLINORIL) 150 MG tablet 0 Refills, Maintenance, 07/27/22 8:08:00 EDT, Partial fill upon patient request if the prescription is for a schedule II opioid drug. 07/27/2022 VYVANSE 70 mg capsule TAKE 1 CAPSULE BY MOUTH EVERY DAY IN THE MORNING FOR 28 DAYS 09/05/2023 documented as of this encounter ED Notes * Danisha Braden RN - 12/28/2024 7:53 PM EDT ED Nursing Progress Note Pt seen by ED provider in triage. Pt choosing to leave and not get further treatment in the ED. Declines d/c VS. * Danisha Braden RN - 12/28/2024 5:08 PM EDT Pt here for eval of dizziness and LAGUNAS. Pt has hx migraines with vertigo. Onset sx today 1300. Pt does not have medications that she uses for these sx. 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 Some vomiting. Very tearful in triage. Has a sweatshirt covering her head states she can't stand any light. * Rona Robbins PA-C - 12/28/2024 4:56 PM EDT Chief Complaint Chief Complaint Patient presents with Dizziness History of Present Illness The patient, India Redding,is a 29 y.o. female who presents for evaluation of Dizziness The patient reports to the emergency for evaluation of dizziness and headache. Patient states around 1:00 today she started with the room spinning dizziness, nausea and vomiting coupled with a gradually worsening migraine headache that is localized to the left side of her head worse since the onset. Currently a 9 out of 10. She has associated photophobia. She states she has had very similar symptoms previously she was seen at [facility] and hospitalized at the time where she was diagnosed with vestibular migraines. She states that episode was much more severe and she could not walk at that time which is different as she can walk this time. She finished vestibular PT a couple weeks ago and actually has vestibular testing tomorrow. At that time she had an MRI of her brain which initially did show some white matter changes however she had a repeat MRI which showed that these had resolved so her neurologist believes the white matter changes were secondary to a migraine headache. Patient does describe having a migraine last week without the vertigo symptoms which resolved, she had no headache over the weekend or when she woke up this morning however it returned around 1 PM. She denies any recent head trauma. No fevers. No infectious type symptoms. She denies any unilateral weakness or paresthesias. No vision changes. No difficulty speaking or swallowing. Unless otherwise specified, I have reviewed and agree with the triage and nursing notes. ROS A ten point review of systems was negative except what was noted in the HPI. Review of Systems Past Medical History No past medical history on file. Past Surgical History No past surgical history on file. Home Medications Prior to Admission medications Medication Sig cyanocobalamin, vitamin B-12, (VITAMIN B-12) 1,000 mcg/mL Drop 0 Refills, Maintenance, 07/27/22 8:09:00 EDT, Partial fill upon patient request if the prescription is for a schedule II opioid drug. ergocalciferol, vitamin D2, (VITAMIN D2 ORAL) 250 mcg, Oral etonogestreL (NEXPLANON) 68 mg Impl 0 Refills, Maintenance, 07/27/22 8:11:00 EDT, Partial fill uponpatient request if the prescription is for a schedule II opioid drug. ondansetron (ZOFRAN) 8 MG tablet 8 mg, Oral, Every 8 hours PRN sulindac (CLINORIL) 150 MG tablet 0 Refills, Maintenance, 07/27/22 8:08:00 EDT, Partial fill upon patient request if the prescription is for a schedule II opioid drug. VYVANSE 70 mg capsule TAKE 1 CAPSULE BY MOUTH EVERY DAY IN THE MORNING FOR 28 DAYS Allergies Allergies Allergen Reactions Clindamycin Other Reaction(s): Other (See Comments) Seen in ER and dx with esophagitis related to clindamycin Gluten Latex Other Dairy Products Soybean Allergy Dairy Soy Soybean Wheat Social and Family History Social History Tobacco Use Smoking status: Not on file Smokeless tobacco: Not on file Substance Use Topics Alcohol use: Not on file Social History Substance and Sexual Activity Drug Use Not on file No family history on file. Physical Exam Vital Signs: ED Triage Vitals [12/28/24 1711] Encounter Vitals Group BP 124/86 Systolic BP Percentile Diastolic BP Percentile Heart Rate 77 Respiratory Rate 16 Temperature 36.4 ??C (97.5 ??F) Temp Source Temporal SpO2 100 % Weight 150 lb Height 5' 5 Head Circumference Peak Flow Pain Score Pain Loc Pain Education Exclude from Growth Chart Physical Exam Vitals and nursing note reviewed. Constitutional: General: She is not in acute distress. Appearance: Normal appearance. She is not ill-appearing, toxic-appearing or diaphoretic. Comments: Patient appears uncomfortable, has sunglasses on throughout exam. HENT: Head: Normocephalic and atraumatic. Nose: Nose normal. Mouth/Throat: Mouth: Mucous membranes are moist. Pharynx: Oropharynx is clear. Eyes: General: No scleral icterus. Extraocular Movements: Extraocular movements intact. Conjunctiva/sclera: Conjunctivae normal. Pupils: Pupils are equal, round, and reactive to light. Neck: Comments: No nuchal rigidity. Cardiovascular: Rate and Rhythm: Normal rate and regular rhythm. Pulmonary: Effort: Pulmonary effort is normal. No respiratory distress. Abdominal: General: Abdomen is flat. Palpations: Abdomen is soft. Tenderness: There is no right CVA tenderness, left CVA tenderness or guarding. Musculoskeletal: General: No deformity. Cervical back: Neck supple. Skin: General: Skin is warm and dry. Neurological: Mental Status: She is alert and oriented to person, place, and time. Comments: Oriented to person, place and time Speech is clear and fluent Cranial Nerves II-XII intact as follows: II - Vision is grossly normal with no obvious visual field defect. III, IV, - PERRL. EOM's are intact without nystagmus. V - Facial sensation is normal. VII - Face is symmetric without droop. VIII - Hearing grossly normal and symmetric. IX,X - Patient is not hoarse. No deviation of uvula. XI - Shrug strength is normal and symmetric. XII - Tongue protrudes in the midline. 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 LE symmetrical strength 5/5 for flexion, abduction and adduction at the hip, 5/5 flexion and extension at the knee, 5/5 plantar and dorsiflexion of the foot. Sensory exam: normal sensation to light touch symmetrically on all extremities. Cerebellar function: No dysmetria detected on nreizb-ct-[id number] testing. Rapid alternating movements and [id number] intact. Walks with normal steady gait including with tandem walking. Psychiatric: Mood and Affect: Mood normal. Behavior: Behavior normal. Laboratory Testing Results for orders placed or performed during the hospital encounter of 12/28/24 HCG, serum qualitative Specimen: Blood Result Value Ref Range HCG, QUALITATIVE Negative Negative IU/L CBC and differential Specimen: Blood Result Value Ref Range WBC 7.77 4.00 - 11.00 K/uL RBC 4.55 4.00 - 5.20 M/uL HGB 13.8 12.0 - 16.0 g/dL HCT 40.8 36.0 - 46.0 % PLT 188 150 - 450 K/uL MCV 89.7 80.0 - 100.0 fL MCH 30.3 27.0 - 31.0 pg MCHC 33.8 32.0 - 36.0 g/dL RDW 11.2 (L) 11.5 - 14.5 % MPV 11.2 8.4 - 12.0 fL NRBC 0.00 0.00 /100 WBCs ABSOLUTE NRBC 0.00 0.00 K/uL DIFF METHOD Auto NEUTS 68.7 48.0 - 76.0 % LYMPHS 20.5 18.0 - 41.0 % MONOS 9.4 4.0 - 11.0 % EOS 0.6 0.0 - 5.0 % BASOS 0.5 0.0 - 1.5 % Granulocytes, immature (%) 0.3 0.0 - 0.9 % ABSOLUTE NEUTS 5.34 1.92 - 7.60 K/uL ABSOLUTE LYMPHS 1.59 0.72 - 4.10 K/uL ABSOLUTE MONOS 0.73 0.16 - 1.10 K/uL ABSOLUTE EOS 0.05 0.00 - 0.50 K/uL ABSOLUTE BASOS 0.04 0.00 - 0.15 K/uL Granulocytes, immature 0.02 0.00 - 0.09 K/uL Basic metabolic panel Specimen: Blood Result Value Ref Range SODIUM 141 133 - 146 mmol/L CHLORIDE 106 96 - 108 mmol/L POTASSIUM 3.7 3.3 - 5.1 mmol/L CO2 20 (L) 21 - 35 mmol/L BUN 4 (L) 6 - 19 mg/dL CREATININE 0.70 0.5 - 1.5 mg/dL GLUCOSE 98 70 - 99 mg/dL CALCIUM 9.6 8.4 - 10.3 mg/dL EGFR 119 >59 mL/min/1.73m2 ANION GAP 19 10 - 20 mmol/L Radiology Testing No orders to display MDM Assessment and Plan: 29-year-old female past medical history significant for vertiginous migraines and ADHD who presentsto the emergency department for the evaluation of headache with vertigo. She is afebrile stable vitals and well-appearing. History and physical as stated above. I was asked to see the patient in triage as she had blood work done and after waiting for 3 hours was requesting to leave.. Blood work shows no significant abnormalities. CBC reveals no leukocytosis, no left shift, no signsof anemia. BMP is without any electrolyte abnormalities and baseline kidney function. hCG is negative. She has a normal, nonfocal neurologic exam. She states her symptoms feel very similar to her previous vertiginous migraines however less severe. She states at this time she would prefer to go home where she can lay down in a dark room. She plans to take Excedrin when she gets home. Did offer for her to stay for further treatment including intravenous medications to help with her symptoms and reexamination following however she declined. Shestates she will come back if she is not feeling better following the above. I Do not believe this is unreasonable. Discussed symptomatic treatment with the patient. Discussed return precautions. Patient verbalized understanding of the above plan and is in agreement with the above plan. The patient was discharged home in stable condition with return precautions. Attestation: I, Rona Robbins, PAMariannaC, have seen this patient independently. This is a PA only visit Category 2 and 3: Independent Interpretation of Tests, Consideration of Tests, or External Discussion of Results: Labs: Laboratory studies were interpreted. Clinical Impressions as of 12/28/242233 Dizziness Other migraine with status migrainosus, intractable Critical Care Time: 0 minutes Clinical Impression Diagnosis Description Comment Final diagnoses Dizziness Dizziness -- Other migraine with status migrainosus, intractable Other migraine with status migrainosus, intractable -- Disposition: Home Rona Robbins PA-C 12/28/242233 documented in this encounter Plan of Treatment Not on file documented as of this encounter Procedures Procedure Name Priority Date/Time Associated Diagnosis Comments HCG, SERUM QUALITATIVE STAT 12/28/2024 5:22 PM EDT CBC AND DIFFERENTIAL STAT 12/28/2024 5:22 PM EDT BASIC METABOLIC PANEL STAT 12/28/2024 5:22 PM EDT documented in this encounter Results * HCG, serum qualitative (12/28/2024 5:22 PM EDT) HCG, QUALITATIVE Negative Negative IU/L [facility] Blood 12/28/2024 5:22 PM EDT 12/28/2024 5:36 PM EDT us Cuong Arroyo MD LAB BLOOD ORDERABLES Final Result [address] [address] * (ABNORMAL) CBC and differential (12/28/2024 5:22 PM EDT) WBC 7.77 4.00 - 11.00 K/uL [facility] RBC 4.55 4.00 - 5.20 M/uL [facility] HGB 13.8 12.0 - 16.0 g/dL [facility] HCT 40.8 36.0 - 46.0 % [facility] PLT 188 150 - 450 K/uL [facility] MCV 89.7 80.0 - 100.0 fL [facility] MCH 30.3 27.0 - 31.0 pg [facility] MCHC 33.8 32.0 - 36.0 g/dL [facility] RDW 11.2(L) 11.5 - 14.5 % [facility] MPV 11.2 8.4 - 12.0 fL [facility] NRBC 0.00 0.00 /100 WBCs [facility] ABSOLUTE NRBC 0.00 0.00 K/uL [facility] DIFF METHOD Auto [facility] NEUTS 68.7 48.0 - 76.0 % [facility] LYMPHS 20.5 18.0 - 41.0 % [facility] MONOS 9.4 4.0 - 11.0 % [facility] EOS 0.6 0.0 - 5.0 % [facility] BASOS 0.5 0.0 - 1.5 % [facility] Granulocytes, immature (%) 0.3 0.0 - 0.9 % [facility] ABSOLUTE NEUTS 5.34 1.92 - 7.60 K/uL [facility] ABSOLUTE LYMPHS 1.59 0.72 - 4.10 K/uL [facility] ABSOLUTE MONOS 0.73 0.16 - 1.10 K/uL [facility] ABSOLUTE EOS 0.05 0.00 - 0.50 K/uL [facility] ABSOLUTE BASOS 0.04 0.00 - 0.15 K/uL [facility] Granulocytes, immature 0.02 0.00 - 0.09 K/uL [facility] Blood 12/28/2024 5:22 PM EDT 12/28/2024 5:36 PM EDT us Cuong Arroyo MD LAB BLOOD ORDERABLES Final Result [facility] [address] [place] [address] * (ABNORMAL) Basic metabolic panel (12/28/2024 5:22 PM EDT) SODIUM 141 133 - 146 mmol/L [facility] CHLORIDE 106 96 - 108 mmol/L [facility] POTASSIUM 3.7 3.3 - 5.1 mmol/L [facility] CO2 20(L) 21 - 35 mmol/L [facility] BUN 4(L) 6 - 19 mg/dL [facility] CREATININE 0.70 0.5 - 1.5 mg/dL [facility] GLUCOSE 98 70 - 99 mg/dL [facility] CALCIUM 9.6 8.4 - 10.3 mg/dL [facility] EGFR 119 >59 mL/min/1.7 3m2 [facility] Comment:Estimated glomerular filtration rate calculated using the CKD-EPI refit equation. ANION GAP 19 10 - 20 mmol/L [facility] Blood 12/28/2024 5:22 PM EDT 12/28/2024 5:36 PM EDT us Cuong Arroyo MD LAB BLOOD ORDERABLES Final Result [facility] [address] [place] [address] documented in this encounter Visit Diagnoses Diagnosis Dizziness- Primary Dizziness and giddiness Other migraine with status migrainosus, intractable documented in this encounter Care Teams Edge Stainer Relationship Specialty Start Date End Date Pcp, Unknown PCP - General 12/28/24 documented as of this encounter Additional Source Comments The information contained in this document represents components of the legal health record. It is not the complete legal health record.Located Within [facility]
[2024-12-30 04:40] VITALS: BP 96/70; PULSE 67; RESP 16; TEMP 36.3; O2SAT 98; BMI 21.8
[2024-12-30 04:59] LABS: MANUAL DIFF FLAG NO
[2024-12-30 05:01] VITALS: BP 103/69; PULSE 55; RESP 17; TEMP 36.8; O2SAT 100
[2024-12-30 05:02] LABS: Hematocrit 38.5 % (37.0-47.0); Hemoglobin 13.1 g/dl (12.0-16.0); Imm Gran Abs Auto 0.01 X10*3/uL (0.00-0.03); Imm Gran Pct Auto 0.1 % (0.0-0.4); Lymphocytes Absolute Auto 3.0 X10*3/uL (1.2-4.9); Mean Corpuscular HGB Conc 34.0 g/dl (31.0-35.0); Mean Corpuscular Hemoglobin 30.6 pg (27.0-33.0); Mean Corpuscular Volume 90.0 fL (80.0-98.0); NRBC Abs Auto 0.000 X10*3/uL (0.0-0.012); NRBC Pct Auto 0.0 /100WBC (0.0-0.2); Platelet Count 185 X10*3/uL (160-400); Red Blood Count 4.28 X10*6/uL (4.20-5.50); White Blood Count 7.0 X10*3/uL (4.8-10.8)
--- OUTSIDE RECORDS SUMMARY | 2024-12-30 05:17 | XMS_ITS | Clinical Summary ---
Author Organization [facility] Address [address] [place] [address] Care Team Providers Care Professor Of Chemistry Name Role Phone Unavailable Primary Care Provider Unavailabl e Allergies Active Allergy Reactions Criticality Noted Date Comments Clindamycin Other (See Comments) 04/03/2011 Seen in ER and dx with esophagitis related to clindamycin Latex 11/06/2023 Soybean-Containing Drug Products 07/26/2016 Wheat 07/26/2016 Medications Medication Sig Dispensed Refills Start Date End Date Status Vyvanse 70 MG capsule TAKE 1 CAPSULE BY MOUTH EVERY DAY IN THE MORNING FOR 28 DAYS 0 09/05/2023 Active Cholecalciferol (Vitamin D) 50 MCG (1999 UT) CAPS Take 1 tablet by mouth daily. 0 03/27/2021 Active Cyanocobalamin (B-12 PO) Take by mouth. 0 Active ondansetron (ZOFRAN) 8 MG tablet Take 1 tablet (8 mg total) by mouth every 8 (eight) hours as needed for nausea. 0 Active IRON-VITAMINS PO Take by mouth. 0 Acti ve Active Problems Problem Noted Date Diagnosed Date Family history of colon cancer 11/07/2023 Food intolerance in adult 11/06/2023 Attention deficit disorder 06/03/201711/05 Dairy product intolerance 03/23/20162023 Cigarette smoker 09/15/2014 11/06/2023 Asthma 04/04/2011 11/06/2023 Overview: 03-21-12: Last used albuterol 3 years ago Last Assessment & Plan: Doing well. If needing albuterol 2 or more times a week regularly, if up coughing at night 2 or more times a month, or if refilling albuterol 2 or more times a year because of use, then to return. Family History Medical History Relation Name Comments Colon cancer Maternal Aunt maternal great aunt (3 of them) Relation Name Status Comments Maternal Aunt Mother Alive Social History Tobacco Use Types Packs/Day Years Used Date Smoking Tobacco: Some Days Cigarettes Smokeless Tobacco: Never Tobacco Cessation:Ready to Q uit: No; Counseling Given: Yes Alcohol Use Standard Drinks/Week Comments Yes 0 (1 standard drink = 0.6 oz pur e alcohol) social Sex and Gender Information Value Date Recorded Sex Assigned at Not on file Gender Identity Not on file Sexual Orientation Not on file Last Filed Vital Signs Vital Sign Reading Time Taken Comments Blood Pressure 94/60 11/06/2023 1:33 PM EDT Pulse 70 11/06/2023 1:33 PM EDT Temperature 36.2 C (97.1 F) 11/06/2023 1:33 PM EDT Respiratory Rate - - Oxygen Saturation 98% 11/06/2023 1:33 PM EDT Inhaled Oxygen Concentration - - Weight 68.9 kg (152 lb) 11/06/2023 1:33 PM EDT Height 165.1 cm (5' 5 ) 11/06/2023 1:33 PM EDT Body Mass Index 25.29 11/06/2023 1:33 PM EDT Plan of Treatment Health Maintenance Due Date Last Done Comments Hepatitis C Screening 1993 Depression Screening 2005 BMI Counseling 12/13/2011 Preventative Health Evaluation 12/13/2011 Cervical Cancer Screening (Pap Smear) 2014 DTap / Tdap / Td (7 - Td or Tdap) 09/25/2015 09/24/2005, 04/01/1998, 05/31/1995, Additional history exists Pneumococcal Vaccine (2 of 2 - PCV) 05/05/2020 05/05/2019 Tobacco Cessation Counseling 11/05/2024 11/06/2023 COVID-19 Vaccine (3 - season) 2024 05/17/2020, 04/26/2020 Influenza Vaccine (#1) 2024 , 03/21/2012, 11/16/2009, Additional history exists Hepatitis B Vaccines Completed 08/30/1994, 01/12/1994, 1993 RSV Ped < 20 months Aged Out No longe r eligible based on patient's age to complete this topic
--- OUTSIDE RECORDS SUMMARY | 2024-12-30 05:17 | XMS_ITS | Clinical Summary ---
Author Organization [facility] Address [address] [address] Phone Care Team Providers Care Staff Midwife/Apprenticeship Director Name Role Phone Pcp, Unknown Primary Care Provider Unavailabl e Allergies Active Allergy Reactions Criticality Noted Date Comments Clindamycin 04/03/2011 Other Reaction(s): Other (See Comments) Seen in ER and dx with esophagitis related to clindamycin Gluten 07/26/2016 Latex 11/06/2023 Other 07/26/2016 Dairy Products Soybean Allergy Dairy Soy 12/01/2023 Soybean 07/26/2016 Wheat 07/26/2016 Medications cyanocobalamin, vitamin B-12, (VITAMIN B-12) 1,000 mcg/mL Drop 0 Refills, Maintenance, 07/27/22 8:09:00 EDT, Partial fill upon patient request if the prescription is for a schedule II opioid drug. 3 Active ergocalciferol, vitamin D2, (VITAMIN D2 ORAL) Take 250 mcg by mouth. 3 Active etonogestreL (NEXPLANON) 68 mg Impl 0 Refills, Maintenance, 07/27/22 8:11:00 EDT, Partial fill upon patient request if the prescription is for a schedule II opioid drug. 3 Active VYVANSE 70 mg capsule TAKE 1 CAPSULE BY MOUTH EVERY DAY IN THE MORNING FOR 28 DAYS 4 Active ondansetron (ZOFRAN) 8 MG tablet Take 8 mg by mouth every 8 (eight) hours as needed. Active sulindac (CLINORIL) 150 MG tablet 0 Refills, Maintenance, 07/27/22 8:08:00 EDT, Partial fill upon patient request if the prescription is for a schedule II opioid drug. 3 Active Active Problems Problem Noted Date Diagnosed Date Blood in urine 12/01/2023 Screening examination for STI 12/01/2023 Encounters Date Type Department Care Team Description 12/28/2024 4:56 PM EDT - 12/28/2024 7:54 PM EDT Emergency [facility] [address] [place] [address] Discharge Disposition: Home or Self Care from Last 3 Months Social History Tobacco Use Types Packs/Day Years [...] PM EDT Sexual Orientation Not on file Last Filed [...] Mass Index 24.96 12/28/2024 5:11 PM EDT Plan of Treatment Health Maintenance Due Date Last Done Comments DEPRESSION SCREENING 2005 SMOKING Hx and SMOKELESS TOBACCO SCREENING 2006 HEPATITIS C SCREENING 12/13/2011 HIV ONE-TIME SCREENING (18-6 5 YEARS) 12/13/2011 Adult Td,Tdap Booster 09/25/2015 09/24/2005 PAP SMEAR 03/27/2024 03/27/2021 INFLUENZA VACCINE (#1) 2024 COVID-19 VACCINE ( - 2023-2 5 season) 2024 MENINGOCOCCAL VACCINES (ACWY) Completed , 11/12/2008 HEPATITIS A VACCINES Aged Out No long er eligible based on patient's age to complete this topic HIB VACCINES Aged Out No longer eligi ble based on patient's age to complete this topic MENINGOCOCCAL VACCINES (B) Aged Out N o longer eligible based on patient's age to complete this topic PNEUMOCOCCAL VACCINES (0-49 years) Aged Out No longer eligible b ased on patient's age to complete this topic Medical Devices Not on file Procedures Procedure Name Priority Date/Time Associated Diagnosis Comments HCG, SERUM QUALITATIVE STAT 12/28/2024 5:22 PM EDT CBC AND DIFFERENTIAL STAT 12/28/2024 5:22 PM EDT BASIC METABOLIC PANEL STAT 12/28/2024 5:22 PM EDT from Last 3 Months Results * HCG, serum qualitative (12/28/2024 5:22 PM EDT) HCG, QUALITATIVE Negative Negative IU/L [facility] Blood 12/28/2024 5:22 PM EDT 12/28/2024 5:36 PM EDT us Cuong Aroryo MD LAB BLOOD ORDERABLES Final Result [address] [address] * (ABNORMAL) CBC and differential (12/28/2024 5:22 PM EDT) [facility] WBC 7.77 4.00 - 11.00 K/uL [facility] RBC 4.55 4.00 - 5.20 M/uL [facility] HGB 13.8 12.0 - 16.0 g/dL [facility] HCT 40.8 36.0 - 46.0 % [facility] PLT 188 150 - 450 K/uL [facility] MCV 89.7 80.0 - 100.0 fL [facility] MCH 30.3 27.0 - 31.0 pg [facility] MCHC 33.8 32.0 - 36.0 g/dL [facility] RDW 11.2(L) 11.5 - 14.5 % [facility] MPV 11.2 8.4 - 12.0 fL [facility] NRBC 0.00 0.00 /100 WBCs [facility] ABSOLUTE NRBC 0.00 0.00 K/uL [facility] DIFF METHOD Auto [facility] NEUTS 68.7 48.0 - 76.0 % [facility] LYMPHS 20.5 18.0 - 41.0 % [facility] MONOS 9.4 4.0 - 11.0 % [facility] EOS 0.6 0.0 - 5.0 % [facility] BASOS 0.5 0.0 - 1.5 % [facility] Granulocytes, immature (%) 0.3 0.0 - 0.9 % [facility] ABSOLUTE NEUTS 5.34 1.92 - 7.60 K/uL [facility] ABSOLUTE LYMPHS 1.59 0.72 - 4.10 K/uL [facility] ABSOLUTE MONOS 0.73 0.16 - 1.10 K/uL [facility] ABSOLUTE EOS 0.05 0.00 - 0.50 K/uL [facility] ABSOLUTE BASOS 0.04 0.00 - 0.15 K/uL [facility] Granulocytes, immature 0.02 0.00 - 0.09 K/uL [facility] Blood 12/28/2024 5:22 PM EDT 12/28/2024 5:36 PM EDT us Cuong Arroyo MD LAB BLOOD ORDERABLES Final Result [facility] [address] [place], [place] [id number] * (ABNORMAL) Basic metabolic panel (12/28/2024 5:22 PM EDT) SODIUM 141 133 - 146 mmol/L [facility] CHLORIDE 106 96 - 108 mmol/L [facility] POTASSIUM 3.7 3.3 - 5.1 mmol/L [facility] CO2 20(L) 21 - 35 mmol/L [facility] BUN 4(L) 6 - 19 mg/dL [facility] CREATININE 0.70 0.5 - 1.5 mg/dL [facility] GLUCOSE 98 70 - 99 mg/dL [facility] CALCIUM 9.6 8.4 - 10.3 mg/dL [facility] EGFR 119 >59 mL/min/1.7 3m2 [facility] Comment:Estimated glomerular filtration rate calculated using the CKD-EPI refit equation. ANION GAP 19 10 - 20 mmol/L [facility] Blood 12/28/2024 5:22 PM EDT 12/28/2024 5:36 PM EDT us Cuong Arroyo MD LAB BLOOD ORDERABLES Final Result [address] [id number] from Last [address] [place] [address] [place] [address] [place] [address] [place] [address] [facility] EMERALD COASTO [facility] EMERALD COASTO Care Teams Staff Midwife/Apprenticeship Director Relationship Specialty Start Date End Date Pcp, Unknown PCP - General 12/28/24 Additional Source Comments The information contained in this document represents components of the legal health record. It is not the complete legal health record.[facility]
--- OUTSIDE RECORDS SUMMARY | 2024-12-30 05:17 | XMS_ITS | Clinical Summary ---
Author Organization [facility] Address [address] [place] [address] Care Team Providers Care Hide Selector Name Role Phone Unavailable Primary Care Provider Unavailabl e Allergies Active Allergy Reactions Criticality Noted Date Comments Clindamycin Unknown/Patient and Family Unable to Define,Other (See Comments) Medium 04/03/2011 Other Reaction(s): Other (See Comments) Seen in ER and dx with esophagitis related to clindamycin Seen in ER and dx with esophagitis related to clindamycin Medications Vyvanse 70 MG capsule TAKE 1 CAPSULE BY MOUTH EVERY DAY IN THE MORNING FOR 28 DAYS Active Active Problems Problem Noted Date Diagnosed Date Blood in urine 12/01/2023 Family history of colon cancer 11/07/2023 Food intolerance in adult 11/06/2023 Chlamydia infection 03/16/2020 Abnormal uterine bleeding (AUB) 03/10/2020 Overview (10/26/2024): Last Assessment & Plan: I discussed causes of abnormal uterine bleeding with the patient including stress, sleep disturbance, IUD malposition, infection or structural abnormalities. Pelvic ultrasound from 2019 was reviewed and WNL. Patient was reassured that IUD strings are visualized and therefore IUD is in position. Urine hCG negative. GC/CT done today, will treat as indicated. I discussed expectant management vs. OCPs to regulate bleeding vs. Removing IUD. Will continue with expectant management at this time. Discussed Ibuprofen 600mg TID x5 days to decrease bleeding, which patient accepts. Patient to return in 2 months to further discuss treatment options if abnormal bleeding continues. Breakthrough bleeding associ ated with intrauterine device (IUD) 06/29/2019 Overview (10/26/2024): Last Assessment & Plan: I counseled [place] re: usual bleeding profile with progestin IUD. I explained her symptoms are within normal limits. I encouraged her to call if her bleeding becomes heavier or she is experiencing significant pain. I encouraged her to use condoms to protect against STI. She will have AG in the fall and can follow up further. She voiced understanding and agreed. Attention deficit disorder 06/03/2017 Dairy product intolerance 03/23/2016 Cigarette smoker 09/15/2014 Asthma 04/04/2011 Overview (10/26/2024): 03-21-12: Last used albuterol 3 years ago Last Assessment & Plan: Doing well. If needing albuterol 2 or more times a week regularly, if up coughing at night 2 or more times a month, or if refilling albuterol 2 or more times a year because of use, then to return. Encounters Date Type Department Care Team Description 10/26/2024 11:00 AM EDT Procedure visit [facility] [address] [place] [address] Adolfo Mireles MD Czaplicki, Allison, Au.D Dizziness (Primary Dx); Vertigo; Frequent headaches from Last 3 Months Immunizations Immunization Administration Dates Next Due Covid-19 MRNA Vaccine - Pfiz er 12+ (Purple Cap) 05/17/2020,04/26/2020 DTP 05/31/1995, 5,04/01/1994,01/30 DTaP 04/01/1998 DTaP / HiB / IPV 03/01/1995, 5,04/01/1994,01/30 HPV Quadrivalent 07/30/2011,03/29/2011, 1 Hep B, Adolescent or Pediatric 08/30/1994,1993,1993 Influenza, Quadrivalent (FLU CELVAX) MDCK, Preservative Free IM 05/05/2019 Influenza, Trivalent (FLUARI X, AFLURIA, FLULAVAL, FLUZONE) Preservative Free IM 03/21/2012,11/16/2009,12/27/2008,01/30,03/31/2007,01/31/2006,02/03/2005 MMR 03/01/1998,12/30/1997 Meningococcal MCV4P (Menactra) 03/21/2012,2008 OPV 04/01/1998, 5,04/01/1994,01/30 Pneumococcal Polysaccharide 23-Valent 05/05/2019 Tdap 09/24/2005 Varicella 11/12/2008,05/31/1995 Social History Tobacco Use Types Packs/Day Years Used Date Smoking Tobacco: Every Day Cigarettes Passive Smoke Exposure: Current Smokeless Tobacco: Never Alcohol Use Standard Drinks/Week Comments Yes 0 (1 standard drink = 0.6 oz pur e alcohol) Comments Unknown Sex and Gender Information Value Date Recorded Sex Assigned at Not on file Legal Sex Female 1:28 PM EDT Gender Identity Not on file Sexual Orientation Not on file Last Filed Vital Signs Vital Sign Reading Time Taken Comments Blood Pressure - - Pulse - - Temperature - - Respiratory Rate - - Oxygen Saturation - - Inhaled Oxygen Concentration - - Weight 59 kg (130 lb) 10/26/2024 10:52 AM EDT Height 165.1 cm (5' 5 ) 10/26/2024 10:52 AM EDT Body Mass Index 21.63 10/26/2024 10:52 AM EDT Plan of Treatment Upcoming Encounters Date Type Department Care Team (Late st Contact Info) Description 03/23/2025 12:00 PM EST Office Visit [facility] [address] [place] [address] Carmen Gonzalez Au.D [address] [place] [address] [phone] 03/29/2025 12:00 PM EST Office Visit [facility] [place] [address] [facility], [place] [address] Adolfo Mireles MD [address] [place] [address] [phone] Health Maintenance Due Date Last Done Comments Hepatitis C Virus Screening 1993 HIV Screening 2006 Pap Smear (Ages 21-65) 2014 DTaP/Tdap/Td Vaccines (7 - T d or Tdap) 09/25/2015 09/24/2005, 04/01/1998, 05/31/1995, Additional history exists Pneumococcal Vaccine: Pediat kyrie (0-5 Years) and At-Risk Patients (6 to 49 Years) (2 of 2 - PCV) 05/05/2020 05/05/2019 Influenza Vaccine 10/30/2024 05/05/2019, , 11/16/2009, Additional history exists COVID-19 Vaccine (3 - 2024-2 6 season) 2024 05/17/2020, 04/26/2020 Hepatitis B Vaccines Completed 08/30/1994, 01/12/1994, 1993 HPV Vaccines Completed 07/30/2011, 03/02, 01/03/2011 Procedures Procedure Name Priority Date/Time Associated Diagnosis Comments BASIC COMPREHENSIVE AU Routine 11:00 AM EDT Dizziness from Last 3 Months Results * BASIC COMPREHENSIVE AU (10/26/2024 11:00 AM EDT) Narrative Carmen Gonzalez Au.D - 10/26/2024 11:00 AM EDT Esther Ayala 10/26/2024 11:22 AM Adolfo Mireles MD AMB ORDERABLE PERFORMABLE Fin al Result from Last [address] [facility]
--- OUTSIDE RECORDS SUMMARY | 2024-12-30 05:17 | XMS_ITS | Data Portability ---
Author Organization [facility] [employer] Address [address] [facility] [place] [address] Care Team Providers Care Manager Software Name Role Phone ROMELIA COLUNGA Primary Care Provider CARMITA KENT Referring Provider Assessment Encounter Date Assessment Date Assessment LastModified by Organization Details LastModified Time 01/14/2024 01/14/2024 IMPRESSION: Migraine -- with status migrainosus with disabling vertigo September 21, 2023 onset, lasting 2 weeks. Baseline migraine 20/30 days, 50% of which are disabling for part of the day; significant light sensitivity. Cigarette smoking. B rain MRI September 21, 2023 with mild white matter disease only. January 14, 2024: Medications per patient: Vyvanse intermitently, and, intermittently: vitamin D, calcium, vitamin B12, iron She wonders about brain MRI repeat as someone told her that might be a good idea as she was leaving the hospital in August 2023. From the neurological perspective, the mild white matter disease is easily explainable by her history of migraine. The patient is worried about multiple sclerosis. I told her that her presentation in August does not suggest multiple sclerosis at all. Brain MRI was taken because of concern of possible migrainous stroke. She did not have a stroke. Given her headache symptomatology, with the brain MRI that was done unrevealing of stroke, I do not have a neurological reason to pursue a repeat brain MRI. I defer further discussion of this to primary care. Cigarette smoking together with migraine with aura increases the risk of stroke. We discussed that nicotine only methods s uch as vapes, are preferable from a neurological context as the nicotine does not confer a risk of stroke (or heart attack). She understands. I am less concerned about her control. In general, progesterone related control medications are thought to have less prothrombotic risk than estrogen related control medications. I am not clear on the extent that Nexplanon confers any increased risk of thrombotic events. One review article (https://www.ncbi. nlm.nih.gov/pmc/kalpesh kumar/JOB4343714/ ) states that in the long-term there is no associated risk of thrombotic stroke and myocardial infarctions and the references given which I did not follow. (Another article mentions that risk is increased specifically in the first year for combined oral contraceptives but I find no specific statement about risk early after starting usage for Nexplanon.) however, the way inspector states that it may increase risk of serious blood clots especially if you have other risk factors, and this state that Nexplanon is contraindicated for individuals who have had venous thromboembolism in the past. Additionally, there are websites that warned of some increased risk. I do not see references for the subset of these that I looked at. In the big picture, I told her that given that she needs control, her Nexplanon is probably a good choice in terms of minimization of stroke risk. I would defer to primary care or gynecology for further discussion. She is interested in migraine prevention. She tends to get anxious. I suggested venlafaxine ER which may help both. We discussed side effects and she decided to start a small dose. Her migraines get better when she takes her Vyvanse. Perhaps, there is stress from needing just focus early in the morning that triggers the migraine early in the morning a nd forces her to take the Vyvanse which allows her to focus but yet causes anxiety side effects. Anxiety side effects occur even on ~35 mg of Vyvanse, the one half a capsule that she takes. Perhaps 20 mg is a better dose until she finds a psychiatrist (she is looking) to see if a different ADHD medication entirely could help her focus without causing anxiety side effects. Until such a time, I defer to primary care for considering prescription of a lower dose of Vyvanse. She mentions tingling intermittently at the tips of her fingers. Hand specialist told her to adjust how she holds the wheel of her car. These tingling symptoms bother her less than her headache and so we did not focus on this today. >>>>>>>>>>>> PLAN India Redding January 14, 2024 Venlafaxine ER prescription as detailed below. Follow-up 3 months mrossen Not available 01/14/2024 10:24:29 Plan of Treatment Reminders Order Date Submit Date Provider Last Modified By Organization Details Last Modified Time Details Appointments None recorded. Lab None recorded. Referral None recorded. Procedures None recorded. Surgeries None recorded. Imaging None recorded. Medication Orders venlafaxine ER 37.5 mg capsule,ext ended release 24 hr 2023 024 [facility]/Ph[facility]acy #[id number], [address] [facility], [place], [address], 10:03:51 Patient TargetsNo targets recorded. Patient Instructions Encounter Date Encounter Id Patient Instructions Last Modified By Organization Details Last Modified Time 01/14/2024 [id number] Discussion acros s issues of diagnoses and management and same day associated chart review and management greater than 50% greater than 60 minutes [email or web address] Not available 01/14/2024 10:06:00 Reason for Referral None Reported. Procedures Surgical History Date Name Laterality Status Provider Name and Address Organization Details Recorded Time 01/14/2024 DATA REVIEW completed Bang Bosch MD [address] [place] [address], [phone], [facility] 01/14/2024 10:06:35 Imaging Results None recorded. Procedure Notes None recorded. Medical Equipment None Reported. Allergies Allergen ID Allergen Name Allergen Category Reaction Reaction Severity Criticality Documentation Date Start Date Code Code System Note Provider Name and Address Organization Details Recorded Time 4439 clindamyc in Not available Not available Not available Not available 01/14/2024 2582 RxNorm Rosio Arroyo [facility] 08:57:41 Medications Name Sig Start Date Stop Date Status Note LastModified by Organization Details LastModified Time venlafaxine ER 37.5 mg capsule,exte nded release 24 hr TAKE 1 CAPSULE EVERY DAY BY ORAL ROUTE IN THE MORNING FOR 30 DAYS, FOR MIGRANE PREVENTION & ANXIETY. active Not Available Not Available N ot Available metronidazol e 500 mg tablet TAKE 1 TABLET BY MOUTH TWICE A DAY FOR 7 DAYS active Not Available Not Available No t Available ondansetron 8 mg disintegrati ng tablet TAKE 1 TABLET EVERY 8 HOURS NEEDED FOR VOMITING . DO NOT EXCEED 32 MGS IN 24 HOURS active Not Available Not Available No t Available epinephrine 0.3 mg/0.3 mL injection, auto-injecto r USE DIRECTED FOR ANAPHYLAXIS . CALL 911 AFTER USE active Not Available Not Available No t Available methylpredni solone 4 mg tablets in a dose pack TAKE 6 TABLETS ON DAY 1 DIRECTED ON PACKAGE AND DECREASE BY 1 TAB EACH DAY FOR A TOTAL OF 6 DAYS active Not Available Not Available No t Available doxycycline hyclate 100 mg tablet TAKE 1 TABLET BY MOUTH TWICE A DAY active Not Available Not Available No t Available isotretinoin 30 mg capsule TAKE 1 CAPSULE BY MOUTH EVERY DAY active Not Available Not Available No t Available Vyvanse 70 mg capsule TAKE 1 CAPSULE BY MOUTH EVERY DAY IN THE MORNING FOR 28 DAYS active Not Available Not Available No t Available Vitals Date Recorded Body height Body mass index (BMI) Body weight Respiratory rate Provider Name and Address Organization Details Last Updated DateTime 01/14/2024 165.1 cm 24.6 kg/m2 84002.67 g 12 /min [facility] 01/14/2024 08:57:28 Social History Question Answer Notes LastModified by Rudder Details LastModified Time Tobacco Smoking Status Current Every Day Smoker [facility] 01/14/2024 09:05:17 What Is Your Level Of Caffeine Consumption? Occasional Information not available 01/14/2024 What Is The Highest Grade Or Level Of School You Have Completed Or The Highest Degree You Have Received? [id number] Information not available 01/14/2024 Which Of Your Hands Is Dominant? Right Information not available 01/14/2024 What Is Your Relationship Status? Single Information not available 01/14/2024 How Much Tobacco Do You Smoke? 0.25 PPD Information not available 01/14/2024 Sex: Unknown Functional Status Question Answer Note LastModified by Rudder Details LastModified Time What is your level of alcohol consumption? Occasional Information not available 01/14/2024 Mental Status None recorded. Family History Relationship Description Onset Age of this Age Resolved Age Notes LastModified by Organization Details LastModified Time Mother Type 2 diabetes mellitus [place] Not available 08:59:28 Father Type 2 diabetes mellitus [email or web address] Not available 08:59:28 Unspecified Relation Heart disease cancer and possib le heart attack vwor[place] Not available 01/14/2024 09:00:04 Notes:cancer on both, brain aneurysm on mom's side Medical History Condition Response Vitamin D Deficiency Y Headaches Y Asthma Y Gynecological HistoryNo gynecological history recorded. Obstetrics History GPAL:G 0 P 0 0 0 0 Past Encounters Encounter ID Performer Location Encounter Start Date Encounter Closed Date Diagnosis/Indication Diagnosis SNOMED-CT Code Diagnosis ICD10 Code Diagnosis IMO Codes Diagnosis Note [id number] Bang Bosch MD [facility] [address] [place] [address] [place] [address] 01/14/2024 08:45:11 01/14/2024 11:12:12 Migraine with aura 5634375 G43.109 Health Concerns Section Related Observation LastModified by Organization Detai ls LastModified Time None Recorded Concern Status LastModified by Organization Details LastModified Time None Recorded Advance Directives Directive None Recorded Payers Insurance Date Sequence Insurance Name Policy Number Policy Uribe Covered Member ID Uribe Member ID Guarantor Name 01/22/[address] [place] [address] [id number] India Redding [id number] India Redding Notes Date Note Type Note Provider Name and Address Organization Details Recorded Time 01/14/2024 text/html India Redding presents for initial neurology consultation for assessment and management of September 21, 2023 onset of incapacitating headache with vertigo and emesis, context baseline 20/30 headache days per month, half of them debilitating part of the time. P ast history includes ADHD and cigarette smoking. She is unaccompanied.>>>>>> >>>>>>January 14, 2024 presenting symptomotology:She has headaches ~20 out of 30 days on average. About 50% of these headaches are disabling at least part of the day. However, starting early in the morning September 21, 2023, she had an event quite different from any of these headaches. She had continuous spinning dizziness with the headache. It was so bad that she could barely walk. She threw up multiple times. She presented to [facility] where she was admitted for a short period of time. They gave her lots of medications. Her headache finally got partially better, she thinks with the inclusion of Haldol among the administered medications. She was able to walk, although barely, as she was being discharged. She had consultation at that time with a vertigo specialist who told her, after exam, that they perceived crystals in her ears. They did a maneuver (Digna maneuver likely) and her vertigo was much better and she could walk much better afterwards although there was still residual vertigo and gait imbalance.More generally, headache and vertigo continued significantly intense so that she was at least partially disabled for a full week after onset. Symptoms did not completely resolve for another week.With her normal headaches, she has significant light sensitivity but no other visual changes with her headaches. We did not discuss whether there is more mild vertigo with these headaches. Headaches are most likely to emerge a short time after she wakes. She takes Excedrin but this does not help much. Vyvanse, her medication for ADHD, seems to help a lot although not completely. She does not take the full Vyvanse 70 mg that she is prescribed because of side effects of anxiety. She opens the capsule and takes about half. She still gets anxiety, but less. Bang Bosch MD [address] [place] [address] [place], [phone], [facility] 01/14/2024 10:24:36 OBGyn Episode No OBEpisode recorded.
--- OUTSIDE RECORDS SUMMARY | 2024-12-30 05:17 | XMS_ITS | Clinical Summary ---
Author Organization Patient Business Ser [facility] Address [address] [place] [address] Care Team Providers Care Data Miner Name Role Phone Farrukh Avila DO Primary Care Provider + Allergies Active Allergy Reactions Criticality Noted Date Comments Clindamycin Hcl Other 04/03/2011 Seen in ER and dx with esophagitis related to clindamycin Gluten 07/26/2016 Other 07/26/2016 Dairy Products Soybean Allergy Wheat Bran 07/26/2016 Medications albuterol HFA (Ventolin HFA) 90 mcg/actuation inhaler Inhale 2 Puffs into the lungs every 4 hours as needed for Cough or Wheezing. Active cholecalciferol (VITAMIN D-3) 50 mcg (2,000 unit) capsule Take 1 tablet by mouth daily. Active ergocalciferol (VITAMIN D-2) 1,250 mcg (50,000 unit) capsule Take 1 capsule by mouth once a week for 360 days. One tablet once weekly Active etonogestrel-eluti ng contraceptive device (Nexplanon) 68 mg implant subdermal implant Inject 68 mg into the skin Once. Active fluticasone propionate (FLONASE) 50 mcg/actuation nasal spray 2 Sprays by Nasal route daily as needed for Rhinitis or Allergies. Active sulindac (CLINORIL) 200 mg tablet Take 1 Tab by mouth 2 times daily as needed for Pain. Take 1 pill every 12 hours for pain. Active lisdexamfetamine (VYVANSE) 70 mg capsule Take 1 capsule by mouth every morning. Active Active Problems Problem Noted Date Diagnosed Date Chlamydia infection 03/16/2020 Abnormal uterine bleeding (AUB) 03/10/2020 Overview (02/24/2024): Last Assessment & Plan: I discussed causes [...] ated with intrauterine device (IUD) 06/29/2019 Overview (02/24/2024): Last Assessment & Plan: I counseled Nori re: usual bleeding profile with progestin IUD. [...] 03/23/2016 Cigarette smoker 09/15/2014 Asthma 04/04/2011 Overview (02/24/2024): 03-21-12: Last used albuterol 3 years ago Last Assessment & Plan: Doing well. If needing albuterol 2 or more times a week regularly, if up coughing at night 2 or more times a month, or if refilling albuterol 2 or more times a year because of use, then to return. Immunizations Immunization Administration Dates Next Due DTP 05/31/1995, 5,04/01/1994,01/30 DTaP (Infanrix) 6wks to less than 7yo 04/01/1998 IQiG-ZCD-NOF (Pentacel) 2mo to less than 5yo 03/01/1995,05/30/1994,04/01/1994,01/30 HPV, Quadrivalent 07/30/2011,03/29/2011,01/04/20 11 Hepatitis B Pediatric (Enger ix B; Recombivax HB) to less than 20 yo 08/30/1994,01/12/1994,1993 Influenza Quadravalent, MDCK , 0.5ml, preservative free (Flucelvax) 6mo and older 05/05/2019 Influenza trivalent, 0.5mL, preservative free (Fluarix; FluLaval; Fluzone) ages 6mo and older (Afluria) 3 years and older 03/21/2012,11/16/2009,12/27/2008,01/30,03/31/2007,01/31/2006,02/03/2005 MMR, measles mumps and rubel la Live (Priorix; M-M-R II) 12mo and older 03/01/1998,12/30/1997 Meningococcal MCV4P 03/21/2012,11/12/2008 OPV 04/01/1998, 5,04/01/1994,01/30 Pfizer SARS-CoV-2 COVID-19, mRNA, LNP-S, preservative free 05/17/2020,04/26/2020 Pneumococcal polysaccharide 23 valent (Pneumovax 23) 2yo and older 05/05/2019 Tdap Tetanus diptheria acell ular pertussis (Boostrix; Adacel) 7yo and older 09/24/2005 Varicella live (Varivax) 12m o and older 11/12/2008,05/31/1995 Family History Medical History Relation Name Comments Colon cancer Mother's Sister maternal gre at aunt (3 of them) Relation Name Status Comments Mother Alive Mother's Sister Social History Tobacco Use Types Packs/Day Years Used Date Smoking Tobacco: Every Day Cigarettes Smokeless Tobacco: Never Alcohol Use Standard Drinks/Week Comments Yes 0 (1 standard drink = 0.6 oz pur e alcohol) socially/ occas Comments No Sex and Gender Information Value Date Recorded Sex Assigned at Not on file Legal Sex Female 5:14 PM EDT Gender Identity Not on file Sexual Orientation Not on file Obstetrics History Para Term AB IAB SAB Ectopic Multiple Livin g Live Births 0 0 0 0 0 0 0 0 Last Filed Vital Signs Vital Sign Reading Time Taken Comments Blood Pressure 122/74 04/17/2024 9:39 AM EST Pulse 79 04/17/2024 9:39 AM EST Temperature - - Respiratory Rate 16 04/17/2024 9:39 AM EST Oxygen Saturation - - Inhaled Oxygen Concentration - - Weight 65.1 kg (143 lb 9.6 oz) 04/17/2024 9:39 A M EST Height 165.1 cm (5' 5 ) 04/17/2024 9:39 AM EST Body Mass Index 23.9 04/17/2024 9:39 AM EST Plan of Treatment Upcoming Encounters Date Type Department Care Team (Late st Contact Info) Description 01/05/2025 11:30 AM EDT Office Visit [facility] [address] [place], [place] [phone] Melinda Summers, CNM [address] [place] [phone] 02/04/2025 9:30 AM EST Procedure visit [facility] [address] [place], [place] [phone] Irena Duckworth DO [address] [place], [place] Health Maintenance Due Date Last Done Comments DTaP,Tdap,and Td Vaccines (7 - Td or Tdap) 09/25/2015 09/24/2005, 04/01/1998, 05/31/1995, Additional history exists Social Influencers of Health Screening 12/14/2019 Pneumococcal Vaccine: Pediatrics (0 to 5 Years) and At-Risk Patients (6 to 49 Years) (2 of 2 - PCV) 05/05/2020 05/05/2019 Cholesterol Screening (Lipid Panel) 10/06/2020 10/07/2015 Depression Screening 04/01/2024 COVID-19 Vaccine (3 - season) 2024 05/17/2020, 04/26/2020 Influenza Vaccine (#1) 2024 0, 03/21/2012, 11/16/2009, Additional history exists Cervical Cancer Screening: HPV 04/17/2029 04/17/2024, 03/27/2021 RSV Immunization Adult Patients (1 - 1-dose 75+ series) 2068 Hepatitis B Vaccines Completed 08/30/1994, 01/12/1994, 1993 HIB Vaccines Completed 03/01/1995, 04/1994, 04/01/1994, Additional history exists MMR Vaccines Completed 03/01/1998, 12/30/1997 IPV Vaccines Completed 04/01/1998, 04/1994, 05/30/1994, Additional history exists Varicella Vaccines Completed 11/12/2008, 05/31/1995 HPV Vaccines Completed 07/30/2011, 03/02, 01/03/2011 Meningococcal ACWY Vaccine Completed 03/21/2012, HIV Screening Completed 06/09/2020 Hepatitis C Screening Completed 06/09/2020 Hepatitis A Vaccines Aged Out No long er eligible based on patient's age to complete this topic Meningococcal B Vaccine Aged Out No l onger eligible based on patient's age to complete this topic RSV Immunization Patients Under 20 months Aged Out No longer eligible based on patient's age to complete this topic Procedures Procedure Name Priority Date/Time Associated Diagnosis Comments HPV WITH REFLEX GENOTYPE Routine 04/17/2024 10:04 AM EST Encounter for annual physical examination excluding gynecological examination in a patient older than 17 years HEPATITIS C SCREENING Routine 06/09/2020 HIV SCREENING Routine 06/09/2020 LIPID PANEL Routine 10/07/2015 from Last 3 Months or Most Recently Relevant to Health Maintenance Results * HPV with reflex genotype (04/17/2024 10:04 AM EST) HPV Negative Negative LAB MICROBIOLOGY METHOD 04/20/2024 3:03 PM EST [facility] Brushing/Spatula Cervix uteri structure / Unknown 04/17/2024 10:04 AM EST 04/20/2024 6:20 AM EST Brenda Glez CNM LAB MOLECULAR DIAGNOSTICS OR DERABLES Final Result [facility] [address] [place] [address], [place] [phone] * HIV Screening (06/09/2020) HIV Screening abstracted Historical Provider HEALTH MAINTENANCE Final Result * Hepatitis C Screening (06/09/2020) Hepatitis C Screening abstracted Historical Provider HEALTH MAINTENANCE Final Result * Lipid panel (10/07/2015) LDL/HDL Ratio 2 0 - 4 Triglycerides 46 0 - 150 mg/dL Cholesterol 125 0 - 200 mg/dL HDL 51 >=40 mg/dL LDL Cholesterol 65 0 - 100 mg/dL Blood Venous blood specimen / Unknown Historical Provider LAB BLOOD ORDERABLES Jane l Result from Last 3 Months or Most Recently Relevant to Health Maintenance Insurance [facility] [place] [id number] [facility] Care Teams Data Miner Relationship Specialty Start Date End Date Farrukh Avila DO [facility] [address] [place] [address] [phone] PCP - General Internal Medicine 10/19/20
--- NOTE | 2024-12-30 05:27 | ED.GENADULT ---
HPI - General Adult General Chief complaint: Headache Stated complaint: gen med Time Seen by Provider: 12/30/24 05:06 Source: patient Limitations: no limitations History of Present Illness ED Provider: Alyssa Ivy PA-C HPI narrative: 29-year-old female with a history of vertigo and migraine, presents with vertigo and migraine x2 days. Associated right-sided retro-orbital headache, with the associated photophobia, photophobia, nausea, vomiting and dizziness. Patient states she was seen at urgent Care, they gave her Fioricet, it helped her symptoms to some degree. Patient states she always has a vertigo to some degree, that it fluctuates. Patient was seen last year in our emergency department for similar presentation, she required hospital admission. She states her vertigo resolved after vestibular therapy.Denies recent illness, cough or cold symptoms no fever. No neck pain. Denies new heavy lifting preceding the onset of the headache. Denies dietary changes, medication changes. She states she does have new psychosocial stressors. Related Data Home Medications ?Medication ?Instructions ?Recorded ?Confirmed albuterol sulfate 90 mcg/actuation 2 puff inhalation Q4-6H PRN 09/21/23 09/21/23 aerosol inhaler Shortness Of Breath Or Wheezing calcium carbonate 500 mg PO DAILY 09/21/23 09/21/23 cholecalciferol (vitamin D3) 125 125 mcg PO DAILY 09/21/23 09/21/23 mcg (5,000 unit) tablet (Vitamin D3) cyanocobalamin (vitamin B-12) 1,000 mcg PO DAILY 09/21/23 09/21/23 1,000 mcg tablet etonogestrel 68 mg subdermal 68 mg subdermal USEASDIRECTD 09/21/23 09/21/23 implant (Nexplanon) ferrous sulfate 325 mg (65 mg 325 mg PO DAILY 09/21/23 09/21/23 iron) tablet (iron) ibuprofen 200 mg tablet 400 mg PO DAILY PRN Pain 09/21/23 09/21/23 Previous Rx's ?Medication ?Instructions ?Recorded doxycycline hyclate 100 mg tablet 100 mg PO BID #14 tabs 09/23/23 ketorolac 10 mg tablet 10 mg PO Q6H PRN pain #20 tabs 12/30/24 prochlorperazine maleate 10 mg 10 mg PO Q8H PRN nausea and 12/30/24 tablet (Compazine) vomiting #15 tabs Allergies Allergy/AdvReac Type Severity Reaction Status Date / Time clindamycin Allergy Intermediate Chest Pain Verified 12/30/24 04:43 Latex, Natural Rubber Allergy Rash Verified 12/30/24 04:43 soy Allergy Unknown Verified 12/30/24 04:43 gluten AdvReac Unknown Verified 12/30/24 04:43 lactase (From Dairy Aid) AdvReac Gastrointestinal Verified 12/30/24 04:43 Upset Milk Containing Products AdvReac Gastrointestinal Verified 12/30/24 04:43 (Dairy) Upset Review of Systems Review of Systems: Yes all other systems are reviewed and are negative Constitutional: Constitutional: Denies fatigue, Denies fever(s) and Reports headache(s) ENT: Reports dizziness, Reports headache(s) and Denies neck pain Cardiovascular: Cardiovascular: Denies chest pain and Denies dyspnea Respiratory: Respiratory: Denies dyspnea Gastrointestinal: Gastrointestinal: Reports nausea and Reports vomiting Musculoskeletal: Musculoskeletal: Denies back pain and Denies neck pain Neurologic: Reports dizziness and Reports headache(s) Endocrine: Endocrine: Denies fatigue PMFSH Past Medical History Attestation statement: The following information was validated with the patient. Medical History ADD (attention deficit disorder) Cystic acne Social History Social History Patient Tobacco Use Status: Never used Tobacco Advance Directives: No Advance Directives Information Provided: Yes Do you have a plan to hurt others: No Plan service: No Physical Exam ED Vital Signs: Vital Signs - 24 hr 12/30/24 04:40 12/30/24 05:01 Temperature 97.4 F 98.2 F Pulse Rate 67 55 Respiratory Rate 16 17 Blood Pressure 96/70 103/69 Pulse Oximetry 98 100 Oxygen Delivery Method Room Air Room Air BMI result Body Mass Index 21.8 Const Other: Alert well-appearing Orientation/consciousness: patient oriented x3 Neck Neck: Yes full ROM and Yes no meningeal signs Resp Effort & Inspection: normal respiratory effort Cardio Other: Normal peripheral perfusion Skin Other: Warm dry no rash Neuro General: patient oriented x3, gait normal, no meningeal signs, no focal motor deficits and CN's II-XI intact bilaterally Psych Other: Cooperative Course Reevaluation(s) Reevaluation #1: Headache much improved after migraine cocktail Medications Administered Discontinued Medications Generic Name Dose Route Start Last Admin Trade Name [place] PRN Reason Stop Dose Admin Dexamethasone Sodium Phosphate 10 mg 12/30/24 05:03 12/30/24 05:20 Dexamethasone Sod Phosphate 10 Mg/Ml Vial IVPUSH 12/30/24 05:04 10 mg ONCE ONE Administration Diphenhydramine HCl 25 mg 12/30/24 05:03 12/30/24 05:20 Diphenhydramine Hcl 50 Mg/Ml Vial IVPUSH 12/30/24 05:04 25 mg ONCE ONE Administration Sodium Chloride 1,000 mls @ 999 mls/hr 12/30/24 05:15 12/30/24 05:20 Ns IV 12/30/24 06:15 999 mls/hr .Q1H1M OPAL Administration Ketorolac Tromethamine 15 mg 12/30/24 05:03 12/30/24 05:21 Ketorolac Tromethamine 15 Mg/Ml Vial IVPUSH 12/30/24 05:04 15 mg ONCE ONE Administration Prochlorperazine Edisylate 10 mg 12/30/24 05:03 12/30/24 05:20 Prochlorperazine Edisylate 10 Mg/2 Ml Vial IVPUSH 12/30/24 05:04 10 mg ONCE ONE Administration Medical Decision Making Medical Decision Making [facility] Narrative: 29-year-old female with a history of vertigo and migraine, presents with vertigo and migraine x2 days. Associated right-sided retro-orbital headache, with the associated photophobia, photophobia, nausea, vomiting and dizziness. Patient states she was seen at urgent Care, they gave her Fioricet, it helped her symptoms to some degree. Patient states she always has a vertigo to some degree, that it fluctuates. Patient was seen last year in our emergency department for similar presentation, she required hospital admission. She states her vertigo resolved after vestibular therapy. Denies recent illness, cough or cold symptoms no fever. No neck pain. Denies new heavy lifting preceding the onset of the headache. Denies dietary changes, medication changes. She states she does have new psychosocial stressors. No head trauma. Problem: Migraine and vertigo History: Per patient I have considered the following differential diagnoses: Vertigo, migraine, combination of the 2, meningitis, intracranial hemorrhage, VAD Plan: Patient is here with chronic vertigo symptoms with the an acute migraine that is consistent with her migraines. We will give a migraine cocktail. Thought about meningitis, however she has no meningeal signs on exam, has not been sick is not febrile. She also has no neck pain. Thought about intracranial hemorrhage, however she is neurologically intact, there was no head trauma she is not on a blood thinner, there was no indication for CT scan at this time. Likewise, thought about VAD, however there was no preceding heavy lifting activity, and again she is neurologically intact. Screening labs were obtained from triage if her headache remains refractory. I have independently reviewed the following tests: Labs: No leukocytosis, not anemic, no electrolyte abnormality, not Differential Diagnosis Differential Diagnoses: The differential diagnosis associated with the presentation includes See medical decision-making Admission/Observation Consideration of admission/observation: Escalation of care including admission/observation considered Not applicable Lab Data MDM Lab Attestation statement: I reviewed the patient's lab results. 12/30/24 04:53 12/30/24 04:53 Labs: Lab Results 12/30/24 Range/Units 04:53 WBC 7.0 (4.8-10.8) X10*3/uL RBC 4.28 (4.20-5.50) X10*6/uL Hgb 13.1 (12.0-16.0) g/dl Hct 38.5 (37.0-47.0) % MCV 90.0 (80.0-98.0) fL MCH 30.6 (27.0-33.0) pg MCHC 34.0 (31.0-35.0) g/dl RDW 11.5 (11.0-16.0) % Plt Count 185 (160-400) X10*3/uL MPV 11.0 (9.4-12.3) fL Immature Gran % (Auto) 0.1 (0.0-0.4) % Neut % (Auto) 42.6 L (45-73) % Lymph % (Auto) 42.2 H (20-40) % [place] % (Auto) 11.1 H (2-11) % Eos % (Auto) 3.6 (0-4) % Baso % (Auto) 0.4 (0-2) % Lymph # (Auto) 3.0 (1.2-4.9) X10*3/uL [place] # (Auto) 0.8 (0.1-1.2) X10*3/uL Eos # (Auto) 0.3 (0.0-0.4) X10*3/uL Baso # (Auto) 0.0 (0.0-0.2) X10*3/uL Abs Immat Gran (auto) 0.01 (0.00-0.03) X10*3/uL Absolute Neuts (auto) 3.0 (2.0-8.3) x10*3/uL Absolute Nucleated RBC 0.000 (0.0-0.012) X10*3/uL Nucleated RBC % (auto) 0.0 (0.0-0.2) /100WBC Sodium 142 (135-145) mmol/L Potassium 4.4 (3.3-5.1) mmol/L Chloride 110 H (96-108) mmol/L Carbon Dioxide 23 (22-29) mmol/L Anion Gap 13 (12-20) BUN 9 (9-16) mg/dL Creatinine 1.10 (0.5-1.4) mg/dL Estim Creat Clear Calc 66.6 Estimated GFR 58 Random Glucose 85 (60-115) mg/dL Calcium 9.3 D (8.4-10.2) mg/dL Magnesium 2.1 (1.6-2.6) mg/dL Total Bilirubin 0.3 (0.0-1.0) mg/dL AST 25 (5-31) U/L ALT 16 (0-31) U/L Alkaline Phosphatase 60 (39-117) U/L Total Protein 6.9 (6.5-8.0) g/dL Albumin 4.2 (3.5-5.0) g/dL Beta HCG, Quant < 2 mIU/mL Discharge Plan Discharge Clinical Impression: Vertigo, Migraine Patient Disposition: Home, Self-Care Instructions: Migraine Headache (ED), Vertigo (ED) Additional Instructions: You were treated for a migraine type headache. See home care instructions. Your headache improved with a migraine cocktail you received. You should follow up with the neurologist that you have seen in the past. You could also follow up with your primary care provider. If your headaches become frequent, you may require a medication to help prevent migraines. There are also medications to be used in the acute phase when you develop a headache. I am sending you with a medication that you received today, if you develop another headache, take all the medications together at the same time. It is their synergistic effect that helps break the migraine cycle. Compazine 10 mg Ketorolac 10 mg [id number] Benadryl 25 mg Prescriptions: New prochlorperazine maleate [Compazine] 10 mg tablet 10 mg PO Q8H PRN (Reason: nausea and vomiting) Qty: 15 0RF ketorolac 10 mg tablet 10 mg PO Q6H PRN (Reason: pain) Qty: 20 0RF Rx Instructions: maximum total duration of 5 days from all oral, intranasal, or parenteral formulations. The patient received an IV dose of Toradol here in the emergency room. No Action cyanocobalamin (vitamin B-12) 1,000 mcg Tablet 1,000 mcg PO DAILY calcium carbonate 500 mg calcium (1,250 mg) Tablet 500 mg PO DAILY ferrous sulfate [iron] 325 mg (65 mg iron) Tablet 325 mg PO DAILY ibuprofen 200 mg Tablet 400 mg PO DAILY PRN (Reason: Pain) albuterol sulfate 90 mcg/actuation Hfa Aerosol Inhaler 2 puff INHALATION Q4-6H PRN (Reason: Shortness Of Breath Or Wheezing) Nexplanon 68 mg Implant 68 mg SUBDERMAL USEASDIRECTD cholecalciferol (vitamin D3) [Vitamin D3] 125 mcg (5,000 unit) Tablet 125 mcg PO DAILY doxycycline hyclate 100 mg tablet 100 mg PO BID Qty: 14 0RF Stand Alone Forms: Work/School Release Print Language: Cambodian
[2024-12-30 05:29] LABS: Alanine Aminotransferase 16 U/L (0-31); Albumin Level 4.2 g/dL (3.5-5.0); Alkaline Phosphatase 60 U/L (39-117); Anion Gap 13 (12-20); Aspartate Amino Transferase 25 U/L (5-31); Blood Urea Nitrogen 9 mg/dL (9-16); Calcium 9.3 mg/dL (8.4-10.2); Carbon Dioxide 23 mmol/L (22-29); Chloride 110 mmol/L (96-108); Creatinine Clr Calc Pharmacy 66.6; Estimated Glomerular Filt Rate 58; Magnesium 2.1 mg/dL (1.6-2.6); Potassium 4.4 mmol/L (3.3-5.1); Sodium 142 mmol/L (135-145); Total Protein 6.9 g/dL (6.5-8.0)
[2024-12-30 06:55] VITALS: BP 106/63; PULSE 55; RESP 14; TEMP 36.6; O2SAT 100
[2024-12-30 06:56] VITALS: BP 106/63; PULSE 55; RESP 14; TEMP 36.6; O2SAT 100
== END 2024-12-30 06:56 | disposition home or self-care (01) ==
PROVIDERS: Emergency Provider Emergency Medicine; PCP Internal Medicine
DX: G43.909 Migraine, unspecified, not intractable, without status migrainosus (principal); R42 Dizziness and giddiness; H53.143 Visual discomfort, bilateral; R11.2 Nausea with vomiting, unspecified; R10.22 Pelvic and perineal pain left side; Z79.899 Other long term (current) drug therapy
CPT/HCPCS: 36415; 80053; 83735; 84702; 85025; 96361; 96374; 96375; 99284; J0737; J1100; J1200; J1885